=== PATIENT | female | born 1945 | race Caucasian/White ===

== ENCOUNTER 2017-10-11 04:31 | Inpatient (IN) | payer OTHER ==
[~2017-10-11] VITALS: Ht 167.6 cm; Wt 95.4 kg
[~2017-10-11 04:31] MED LIST: ADVIL PM CAPLE1 EACH PO; BUSPIRONE HCL30 M1 PO; CYTOMEL 25 MCG25 MCG PO; LEVOTHROID0.05 MG PO; LEXAPRO 20MG M20 MG PO; SYNTHROID0.025 MG PO
--- NOTE | 2017-10-11 04:33 | ED CARDIAC/CP/PALPITATIONS ---
History of Present Illness General Chief Complaint: Chest Pain Stated Complaint: hx a-fib diff breathing chest heavy Source: patient Exam Limitations: no limitations Vital Signs & Intake/Output Vital Signs & Intake/Output Vital Signs Date Time Temp Pulse Resp B/P B/P Pulse O2 O2 Flow FiO2 Mean Ox Delivery Rate 10/11 0536 122 18 136/78 95 Room Air 10/11 0500 97.6 113 24 132/99 10/11 0457 98 Room Air 10/11 0437 97.6 113 24 132/99 98 Room Air Allergies Coded Allergies: MDX - Codeine (CODEINE) (Severe, THROAT CLOSING, TONGUE SWELLS 01/11/15) rofecoxib (From VIOXX) (HYPERTENSION 10/11/17) Reconcile Medications Alendronate Sodium 70 MG TABLET 1 TAB PO QW BONE STRENGTH (Reported) in the morning, at least 30 minutes before the first food, beverage, or medication of the day Buspirone HCl 30 MG TABLET 1 TAB PO DAILY MENTAL HEALTH (Reported) Diltiazem HCl (Cartia Xt) 120 MG CAP.ER.24H 1 CAP PO DAILY HEART HEALTH ( Reported) Escitalopram Oxalate (Lexapro 20MG) (Unknown Strength) TAB 20 MG PO QAM MENTAL HEALTH (Reported) TAKE TWO TABLETS IN AM Ibuprofen/Diphenhydramine Cit (Advil Pm Caplet) 200 MG-38 MG TABLET 2 TAB PO QHS SLEEP HELP (Reported) Levothyroxine Sodium 50 MCG TABLET 1 TAB PO DAILY THYROID HEALTH (Reported) Levothyroxine Sodium (Levothroid) 0.05 MG TAB 0.05 MG PO DAILY AC THYROID Liothyronine (Cytomel 25 Mcg) 25 MCG TAB 25 MCG PO DAILY THYROID (Reported) TAKE ONE TABLET BY MOUTH DAILY Losartan Potassium 50 MG TABLET 1 TAB PO PM HEART HEALTH (Reported) Metoprolol Tartrate 50 MG TABLET 3 TAB PO BID HEART HEALTH (Reported) Triage Nurses Notes Reviewed? yes Onset: Gradual Duration: day(s): Timing: recent history Location: central Radiation: no radiation Activities at Onset: none Associated Symptoms: shortness of breath, CHEST PALPITATIONS HPI: 72 yo woman h/o afib, on eliquis, presents with shortness of breath and a rapid heart beat. 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 "We keep going up on my lopressor.... it's at 150mg twice a day... but the rate is still in the 130's... tonight it went as high as the 150's." She notes dyspnea and orthopnea at rest, as well as increased swelling in her lower extremities. No chest pain or radiation. Past History Travel History Traveled to [place] past 21 day No Medical History Any Pertinent Medical History? 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 No Review of Systems Review of Systems Constitutional: Denies: see HPI. Physical Exam Physical Exam Cardiovascular: tachycardia, irregularly irregular Comments: Review of Systems - except as otherwise noted in HPI Review of Systems Constitutional:no symptoms. EENTM:no symptoms. Respiratory:no symptoms. Cardiovascular:no symptoms. GI:no symptoms. Genitourinary:no symptoms. Musculoskeletal:no symptoms. Skin:no symptoms. Neurological/Psychological:no symptoms. Hematologic/Endocrine:no symptoms. Immunologic/Allergic:no symptoms. All Other Systems: Reviewed and Negative Physical Exam Physical Exam General Appearance: well developed/nourished, no apparent distress Head: atraumatic, normal appearance Eyes: Bilateral: normal appearance. Ears, Nose, Throat: normal pharynx, normal ENT inspection Neck: normal inspection, supple, full range of motion Respiratory: normal breath sounds, chest non-tender, no respiratory distress, quiet respiration, lungs clear Cardiovascular: see above... no murmurs, Gastrointestinal: normal bowel sounds, soft, non-tender, no organomegaly Back: normal inspection, normal range of motion Extremities: normal inspection, normal capillary refill, normal range of motion, 3-4+ symmetric edema Neurologic/Psych: no motor/sensory deficits, awake, alert, oriented x 3 Skin: intact, normal color, warm/dry Core Measures ACS in differential dx? No CVA/TIA Diagnosis No Sepsis Present: No Sepsis Focused Exam Completed? No Progress Differential Diagnosis: afib with rvr, chf, vs other Plan of Care: Orders Procedure Date/time Status CBC WITHOUT DIFFERENTIAL 10/12 06 Active BASIC ELECTROLYTES PLUS BUN&CR 10/12 06 Active CHF Diet 10/11 B Active Pathway - chart 10/11 0615 Active Pathway - chart 10/11 0614 Active ECHOCARDIOGRAM 10/11 0614 Active Patient Data 10/11 0540 Active Saline Lock 10/11 05 Active Misc Message 10/11 05 Active ED Holding Orders 10/12 527 Active Admit to inpatient 10/11 05 Active Vital Signs 10/11 05 Active Code Status 10/12 527 Active THYROID STIMULATING HORMONE 10/11 044 Complete B-TYPE NATRIURETIC PEP (BNP) 10/11 0446 Complete PARTIAL THROMBOPLASTIN TIME 10/11 0434 Complete PROTHROMBIN TIME 10/11 0434 Complete TROPONIN LEVEL 10/11 0433 Complete LIPASE 10/11 0433 Complete HEPATIC FUNCTION PANEL 10/11 0433 Complete CBC WITHOUT DIFFERENTIAL 10/11 0433 Complete BASIC METABOLIC PANEL 10/11 0433 Complete AMYLASE 10/11 0433 Complete EKG 10/11 0433 Active TRC EVALUATION (GEN) 10/11 UNK Active House Staff 10/11 UNK Active Weight 10/11 UNK Active VTE Mechanical Prophylaxis 10/11 UNK Active Vital Signs 10/11 UNK Active Intake & Output 10/11 UNK Active Activity/Ambulation 10/11 UNK Active Current Medications Sig/Mekhi Start time Last Medication Dose Stop Time Status Admin Diltiazem HCl 125 MG Q24H 10/11 0545 UNVr 10/11 (Cardizem DRIP) 0530 Sodium Chloride 100 ML (Normal Saline 0.9%) Diltiazem HCl 125 MG Q24H 10/11 0515 CAN (Cardizem DRIP) Dextrose/Water 100 ML (Dextrose 5%) Diltiazem HCl 125 MG ONCE ONE 10/11 0445 CAN (Cardizem DRIP) 10/11 1714 Sodium Chloride 100 ML (Normal Saline 0.9%) Laboratory Tests 10/11/17 0446: Anion Gap 15, Estimated GFR 55 L, BUN/Creatinine Ratio 27.0 H, Glucose 162 H, Calcium 9.0, Total Bilirubin 1.4 H, Direct Bilirubin 0.3, AST 70 H, ALT 72 H, Alkaline Phosphatase 80, Troponin I < 0.01, Bqu-D-Lfoehmgptkt Pept 86198 H, Total Protein 6.8, Albumin 3.8, Amylase 40, Lipase 117, TSH 9.070 H, PT 27.4 H , INR 2.49 H, APTT 36, CBC w Diff NO MAN DIFF REQ, RBC 4.92, MCV 82.2, MCH 26.4 L, MCHC 32.1 L, RDW 14.1, MPV 10.4, Gran % 68.7, Lymphocytes % 18.9 L, Monocytes % 10.0 H, Eosinophils % 1.8, Basophils % 0.6, Absolute Granulocytes 7.0 H, Absolute Lymphocytes 1.9, Absolute Monocytes 1.0 H, Absolute Eosinophils 0.2, Absolute Basophils 0.1 10/11/17 0436: Fsg-S-Wmqglwplvui Pept Cancelled, TSH Cancelled Diagnostic Imaging: Viewed by Me: Radiology Read. Discussed w/RAD: Radiology Read. CXR Impression: PATIENT: ROLDAN SALGADO PRESENT AGE : 72 PATIENT ACCOUNT NO: [id number] : 47 LOCATION: [facility] ORDERING PHYSICIAN: Nicolas Dey MD SERVICE DATE: 10/11/17 EXAM TYPE: RAD - XRY-PORTABLE CHEST XRAY EXAMINATION: XR PORTABLE CHEST CLINICAL INFORMATION: Chest pain COMPARISON: 01/11/2015 TECHNIQUE: Portable frontal view of the chest was obtained. FINDINGS: Cardiac leads overlie the chest. The lungs are well expanded. There is no focal consolidation, edema, or effusion. Increased bronchial wall thickening noted. No pneumothorax. The cardiomediastinal silhouette is within normal limits. No acute osseous abnormality. IMPRESSION: No dense consolidation. Bronchial wall thickening can be seen with a small airways process such as asthma or atypical/viral infection. DICTATED BY: Osmar Hoang MD DATE/TIME DICTATED:10/11/17512 TOOL AND DIE MACHINIST:JOANA DATE/TIME TRANSCRIBED:10/11/17512 CONFIDENTIAL, DO NOT COPY WITHOUT APPROPRIATE AUTHORIZATION. <Electronically signed in Other Vendor System> SIGNED BY: Osmar Hoang MD 10/11/17517 Initial ED EKG: afib, tachycardic Departure Departure Disposition: STILL A PATIENT Condition: Stable Clinical Impression Primary Impression: Atrial fibrillation with rapid ventricular response Referrals: Brittni Cabrera MD (PCP/Family) Departure Forms: Customer Survey General Discharge Information Admission Note Spoke With: Cristela Abdullahi MD Documentation of Exam: Documentation of any treatments & extenuating circumstances including Concerns Regarding Discharge (functional status, medication knowledge or non-compliance, living conditions, etc.) that warrant an admission rather than observation: pt with afib with rapid ventricular response... requiring dilt gtt... also with likely mild volume overload... discussed with dr. portillo who will evaluate patient this AM. pt merits dilt gtt, diuresis. Critical Care Note Critical Care Note Critical Care Time: 30-74 min
[2017-10-11 04:54] LABS: ABSOLUTE BASOPHIL COUNT 0.1 /CUMM (0.0-0.2); ABSOLUTE EOSINOPHIL COUNT 0.2 /CUMM (0.0-0.7); ABSOLUTE LYMPH COUNT 1.9 /CUMM (1.2-3.4); BASOPHIL % 0.6 % (0.0-2.0); EOSINOPHIL % 1.8 % (0-5); GRANULOCYTE % 68.7 % (42.2-75.2); HEMATOCRIT 40.4 % (37-47); MEAN CORPUSCULAR HGB 26.4 PG (27.0-31.0); MEAN CORPUSCULAR HGB CONC 32.1 G/DL (33.0-37.0); MEAN CORPUSCULAR VOLUME 82.2 FL (81.0-99.0); MEAN PLATELET VOLUME 10.4 FL (7.4-10.4); PLATELET COUNT 311 /CUMM (130-400); RBC DISTRIBUTION WIDTH 14.1 % (11.5-14.5); RED BLOOD CELL CT 4.92 /CUMM (4.20-5.40); WHITE BLOOD CELL COUNT 10.2 /CUMM (4.8-10.8)
[2017-10-11 05:01] LABS: PT 27.4 SEC (9.4-12.5); PTT 36 SEC (25-37)
--- NOTE | 2017-10-11 05:18 | RADIOLOGY REPORT ---
EXAMINATION: XR PORTABLE CHEST CLINICAL INFORMATION: Chest pain COMPARISON: 01/11/2015 TECHNIQUE: Portable frontal view of the chest was obtained. FINDINGS: Cardiac leads overlie the chest. The lungs are well expanded. There is no focal consolidation, edema, or effusion. Increased bronchial wall thickening noted. No pneumothorax. The cardiomediastinal silhouette is within normal limits. No acute osseous abnormality. IMPRESSION: No dense consolidation. Bronchial wall thickening can be seen with a small airways process such as asthma or atypical/viral infection.
[2017-10-11] MEDS ORDERED: LEVOTHYROXINE50 MCG PO (05:58)
[2017-10-11] MEDS ORDERED: METOPROLOL TART50 M1 PO (06:01)
[2017-10-11] MEDS ORDERED: LOSARTAN POTASS50 M1 PO (06:02)
--- NOTE | 2017-10-11 06:02 | History & Physical ---
Dina Myles 10/11/17 0552: General Information and HPI MD Statement: I have seen and personally examined ROLDAN AYALA and documented this H&P. 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 some compliance issues of taking LT4, came to the hospital with a chief concern of of dyspnea. She was known to be in her usual state of health until 1 month ago. She was known to be in her usual state of health until 1 month ago. She started developing exertional dyspnea, and occasional nonproductive cough. She follows up with her allergy physician, Dr. Yu has been adjusting her dose of beta blockers+ calcium channel blockers, and increase the dose of furosemide. She has been progressively getting worse, and developed orthopnea 2 days ago. Reported increasing pedal edema. No changes in urine output. Reported indiscretion to salt intake, and medication noncompliance. Reported to be dealing with some social issues and multiple medical problems. No chest pain or lightheadedness. No recent illnesses, fever, dysuria. Nonsmoker, occasional alcohol use. 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 EENTM: Denies: double vision, visual changes. Cardiovascular: Denies: chest pain. Respiratory: Denies: cough. GI: Denies: diarrhea. Genitourinary: Denies: dysuria. Musculoskeletal: Denies: joint pain. Skin: Denies: change in skin color. Neurological/Psychological: Denies: anxiety. Hematologic/Endocrine: Denies: bruising. Exam & Diagnostic Data Last 24 Hrs of Vital Signs/I&O Vital Signs Date Time Temp Pulse Resp B/P B/P Pulse O2 O2 Flow FiO2 Mean Ox Delivery Rate 10/11 0536 122 18 136/78 95 Room Air 10/11 0500 97.6 113 24 132/99 10/11 0457 98 Room Air 10/11 0437 97.6 113 24 132/99 98 Room Air Intake & Output 10/11 0800 10/11 0000 10/10 1600 Intake Total 60 Output Total Balance 60 Intake, Oral 60 Patient 185 lb Weight Physical Exam General Appearance Alert, Oriented X3, Cooperative, No Acute Distress, Mild Distress Skin No Rashes, No Breakdown Skin Temp/Moisture Exam: Warm/Dry Sepsis Skin Exam (color): Normal for Ethnicity HEENT Atraumatic, PERRLA, EOMI, Mucous Membr. moist/pink Neck Supple, No JVD, No thryomegaly Lymphatic Axillary nl, Cervical nl Cardiovascular Normal S1, Normal S2, No Murmurs, irregularly irregular Lungs Clear to Auscultation, Normal Air Movement Abdomen Normal Bowel Sounds, Soft, No Tenderness, No Hepatospenomegaly Neurological Normal Speech, Strength at 5/5 X4 Ext, Normal Tone, Sensation Intact, Cranial Nerves 3-12 NL, Reflexes 2+ Extremities No Cyanosis, Normal Pulses, pedal edema 1+ Vascular Normal Pulses, Pulses Symmetrical Last 24 Hrs of Labs/Wilman: Laboratory Tests 10/11/17 0446: Anion Gap 15, Estimated GFR 55 L, BUN/Creatinine Ratio 27.0 H, Glucose 162 H, Calcium 9.0, Total Bilirubin 1.4 H, Direct Bilirubin 0.3, AST 70 H, ALT 72 H, Alkaline Phosphatase 80, Troponin I < 0.01, Crh-T-Ewucwroybrl Pept 16181 H, Total Protein 6.8, Albumin 3.8, Amylase 40, Lipase 117, TSH 9.070 H, PT 27.4 H , INR 2.49 H, APTT 36, CBC w Diff NO MAN DIFF REQ, RBC 4.92, MCV 82.2, MCH 26.4 L, MCHC 32.1 L, RDW 14.1, MPV 10.4, Gran % 68.7, Lymphocytes % 18.9 L, Monocytes % 10.0 H, Eosinophils % 1.8, Basophils % 0.6, Absolute Granulocytes 7.0 H, Absolute Lymphocytes 1.9, Absolute Monocytes 1.0 H, Absolute Eosinophils 0.2, Absolute Basophils 0.1 10/11/17 0436: Nxn-D-Otlkrohhnqq Pept Cancelled, TSH Cancelled Diagnostic Data EKG Results atrial fibrillation, ST-T wave changes. 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 some compliance issues of taking LT4 came to the hospital with a chief concern of acute onset of dyspnea likely secondary to worsenig CHF leading to Rapid Afib. At the time of admission- temperatures 97.6, pulse rate 103, respiration 24, blood pressure 132/99, 98% on room air. Pertinent lab findings- WBC 10.2, hemoglobin 13.0, MCH 26.4, platelet count 311. Sodium 144, potassium 5.5 (slightly elevated likely), chloride 109, bicarbonate 18 (acedemic) Anion gap 15, BUN 27, creatinine 1.0. Glucose 162. Total bilirubin 1.4, AST 70, ALT 72 ProBNP 49864 TSH 9.070 Last echocardiogram: 13 January 2015 Mild left ventricular dilatation. Normal left ventricular ejection fraction visually estimated at > 55%. Mild left atrial dilatation. Mild mitral regurgitation. Mild aortic regurgitation. Mild tricuspid regurgitation. Trace pulmonic regurgitation. Etiology in this case is likely acute decompensated heart failure w/ a possible precipitating event, increase salt intake+medication noncompliance, arrythmia on chronic systolic/diastolic left-sided heart failure. In regards to her atrial fibrillation, she should be continued on anticoagulation and Cardizem drip. She was given metoprolol and Cardizem by mouth, which is quite unusual, which makes his belief that heart rate is being difficult to be controlled. Problem list: 1. Afib w/ RVR 2. CHF ( possibly HFrEF ) 3. 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 h/o depression 5. h/o hypothyroidism -admit the patient on telemetry -follow serial EKGs, troponins -daily Ins and Outs -daily weights -IV diuretics furosemide 40 mg twice a day. -Check BEP daily while on diuretics. -Check FT4, total T3 given high TSH. -2D cardiac echo after discussing w/ cards. She got one recently. -supplemental oxygen as needed -Hold Losartan given hyperkalemia. Although, should be started in CHF. -CHF diet, 2gm salt restriction -Checkerer Hand on dietary compliance -Continue Cardizem, Eliquis. -She has not been taking ospemifene, which needs to be restarted at the time of dc Full code. As Ranked By This Provider Problem List: 1. Atrial fibrillation with rapid ventricular response 2. Anxiety 3. Depression 4. Hypothyroid Core Measures/Misc (12/18) Acute Coronary Syndrome ACS Diagnosis: No Congestive Heart Failure Congestive Heart Failure Diagnosis Yes Last Known EF % 55 No RAND/ARB d/t Medical Contraindication (hyperkalemia) Comment 2014 Cerebrovascular Accident CVA/TIA Diagnosis: No VTE (View Protocol) VTE Risk Factors No risk factors No Mechanical VTE Prophylaxis d/t N/A MechProphylax Ordered No VTE Pharm Prophylaxis d/t NA PharmProphylax ordered Sepsis (View protocol) Sepsis Present: No If YES complete Sepsis Event Note If YES complete Sepsis Event Note Elliot Sim 10/11/17 1119: General Information and HPI Allergies/Medications Home Med list Alendronate Sodium 70 MG TABLET 1 TAB PO QW BONE STRENGTH (Reported) in the morning, at least 30 minutes before the first food, beverage, or medication of the day Apixaban (Eliquis) 5 MG TABLET 1 TAB PO BID BLOOD THINNER (Reported) Buspirone HCl 30 MG TABLET 1 TAB PO DAILY MENTAL HEALTH (Reported) Digoxin 250 MCG TABLET 1 TAB PO DAILY atrial fibrillation . Diltiazem HCl (Cartia Xt) 120 MG CAP.ER.24H 1 CAP PO DAILY HEART HEALTH ( Reported) Furosemide 40 MG TABLET 1 TAB PO BID chf Ibuprofen/Diphenhydramine Cit (Advil Pm Caplet) 200 MG-38 MG TABLET 2 TAB PO QHS SLEEP HELP (Reported) Levothyroxine Sodium 50 MCG TABLET 1 TAB PO DAILY THYROID HEALTH (Reported) Liothyronine Sodium (Cytomel) 25 MCG TABLET 1 TAB PO DAILY HYPOTHYROIDISM ( Reported) Losartan Potassium 50 MG TABLET 1 TAB PO PM HEART HEALTH (Reported) Metoprolol Tartrate 50 MG TABLET 3 TAB PO BID HEART HEALTH (Reported) Ospemifene (Osphena) 60 MG TABLET 1 TAB PO DAILY DIRECTED (Reported) Core Measures/Misc (12/18) Sepsis (View protocol) If YES complete Sepsis Event Note If YES complete Sepsis Event Note Attending MD Review Statement Attending Statement Attending MD Statement: examined this patient, discuss w/resident/PA/CAR TRIMMER, agreed w/resident/PA/CAR TRIMMER, reviewed EMR data (avail), discussed with nursing, discussed with case mgmt Attending Assessment/Plan: 72yr old f with a pmh of paroxysmal atrial fibrillation on apixaban, breast carcinoma s/p mastectomy(dx'ed 2017 on SERM), anxiety, depression, hypothyroidism presented to the hospital with a chief concern of of dyspnea. Pt being admitted for afib iwth RvR and some leg edema and found in ER to have high TSH Afib with RVR- admit to tele and monitor closely the HR. will get cardiology consult with Dr Yu team to evaluate for change of her meds. currently on cardizem drip and eliquis. CHF acute on chronic- will cont on iv lasix for now. will monitor her I & O. will get her echo reprot from Dr Yu office. Hypothyroidism- will f/u with her PCP about med change recently and compliance issue.
[2017-10-11] MEDS ORDERED: ALENDRONATE SOD70 M2 PO (06:12)
[2017-10-11] MEDS ORDERED: CARTIA XT120 M1 PO (06:13)
[2017-10-11] MEDS ORDERED: ELIQUIS5 M1 PO (06:16)
[2017-10-11] MEDS ORDERED: FUROSEMIDE40 M1 PO (06:18)
[2017-10-11] MEDS ORDERED: OSPHENA60 M1 PO (06:18)
[2017-10-11] MEDS ORDERED: CYTOMEL25 MC1 PO (06:28)
--- NOTE | 2017-10-11 07:16 | PN- Housestaff ---
Subjective Follow-up For: Atrial fibrillation with rapid ventricular rate Congestive heart failure with preserved ejection fraction Abnormal thyroid function tests Hyperkalemia Transaminitis Metabolic acidosis Complaints: no complaints Tele-Events Since Last Visit: Atrial fibrillation, rate varying between 80-110 Subjective: Patient was seen and examined this morning. She is alert awake and oriented to time place and person. No acute events noticed. Patient continues to report shortness of breath with minimal exertion. She denies any chest pain, palpitations. She continues to report dry cough, orthopnea and paroxysmal nocturnal dyspnea. Denies any fever, chills. Review of Systems Constitutional: Reports: see HPI. Objective Last 24 Hrs of Vital Signs/I&O Vital Signs Date Time Temp Pulse Resp B/P B/P Pulse O2 O2 Flow FiO2 Mean Ox Delivery Rate 10/11 1054 Room Air 10/11 0912 97.9 116 20 102/60 95 10/11 0748 98.3 105 18 118/72 95 10/11 0638 100 Room Air 10/11 0536 122 18 136/78 95 Room Air 10/11 0500 97.6 113 24 132/99 10/11 0457 98 Room Air 10/11 0437 97.6 113 24 132/99 98 Room Air Intake & Output 10/11 1600 10/11 0800 10/11 0000 Intake Total 60 Output Total 700 Balance -640 Intake, Oral 60 Output, Urine 700 Patient 83.915 kg Weight Weight Reported by Patient Measurement Method Physical Exam General Appearance: Alert, Oriented X3, Cooperative, No Acute Distress Other Physical Findings: Skin No Rashes, No Breakdown HEENT Atraumatic, PERRLA, EOMI, Mucous Membr. moist/pink Neck Supple, No JVD, No thryomegaly Lymphatic Axillary nl, Cervical nl Cardiovascular Normal S1, Normal S2, No Murmurs, irregularly irregular Lungs crackles, wheezes, bilateral normal Air Movement Abdomen Normal Bowel Sounds, Soft, No Tenderness, No Hepatospenomegaly Neurological Normal Speech, Strength at 5/5 X4 Ext, Normal Tone, Sensation Intact, Cranial Nerves 3-12 NL, Reflexes 2+ Extremities No Cyanosis, Normal Pulses, pedal edema 1+ Vascular Normal Pulses, Pulses Symmetrical Current Medications: Current Medications Sig/Mekhi Start time Last Medication Dose Route Stop Time Status Admin Albuterol Sulfate 2 PUF Q4P PRN 10/11 1100 AC INH Apixaban 5 MG BID 10/11 899 AC 10/11 PO 1315 Benzocaine/Menthol 1 GUILLERMO Q2P PRN 10/11 0915 AC 10/11 PO 1045 Buspirone HCl 30 MG DAILY 10/11 899 AC 10/11 PO 1209 Diltiazem HCl 125 MG Q24H 10/11 0545 AC 10/11 Sodium Chloride 100 ML IV 0530 Diltiazem HCl 125 MG Q24H 10/11 0515 CAN Dextrose/Water 100 ML IV Diltiazem HCl 125 MG ONCE ONE 10/11 0445 CAN Sodium Chloride 100 ML IV 10/11 1714 Diltiazem HCl 120 MG ONCE ONE 10/11 0445 DC 10/11 PO 10/11 0446 0536 Furosemide 40 MG 7:30 AM, & 4:30 PM 10/11 1630 AC IV Furosemide 40 MG ONCE ONE 10/11 0500 DC 10/11 IV 10/11 0501 0500 Furosemide 0 .STK-MED ONE 10/11 045 DC IV Levothyroxine Sodium 0.05 MG DAILY AC 10/11 699 AC 10/11 PO 0720 Lorazepam 1 MG ONE ONE 10/11 1300 DC 10/11 PO 10/11 1301 1318 Losartan Potassium 50 MG DAILY 10/11 899 CAN PO Metoprolol Tartrate 0 .STK-MED ONE 10/11 045 DC PO Metoprolol Tartrate 150 MG ONCE ONE 10/11 0445 DC 10/11 PO 10/11 0446 0500 Last 24 Hrs of Lab/Wilman Results Last 24 Hrs of Labs/Mics: Laboratory Tests 10/11/17 1248: Troponin I Pending 10/11/17 1248: Potassium Pending 10/11/17 0446: Anion Gap 15, Estimated GFR 55 L, BUN/Creatinine Ratio 27.0 H, Glucose 162 H, Hemoglobin A1c 6.5 H, Calcium 9.0, Total Bilirubin 1.4 H, Direct Bilirubin 0.3 , AST 70 H, ALT 72 H, Alkaline Phosphatase 80, Troponin I < 0.01, Pro-B- Natriuretic Pept 47837 H, Total Protein 6.8, Albumin 3.8, Triglycerides 80, Cholesterol 123, LDL Cholesterol, Calc 75, HDL Cholesterol 32 L, Cholesterol/ HDL Ratio 4, Amylase 40, Lipase 117, TSH 9.070 H, Free T4 1.24, Total T3 Pending, PT 27.4 H, INR 2.49 H, APTT 36, CBC w Diff NO MAN DIFF REQ, RBC 4.92, MCV 82.2, MCH 26.4 L, MCHC 32.1 L, RDW 14.1, MPV 10.4, Gran % 68.7, Lymphocytes % 18.9 L, Monocytes % 10.0 H, Eosinophils % 1.8, Basophils % 0.6, Absolute Granulocytes 7.0 H, Absolute Lymphocytes 1.9, Absolute Monocytes 1.0 H, Absolute Eosinophils 0.2, Absolute Basophils 0.1 10/11/17 0436: [id number] Pept Cancelled, TSH Cancelled Assessment/Plan Assessment: Ms Ayala is a 72-year-old woman with a past history of paroxysmal atrial fibrillation on apixaban, 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 At the time of admission- temperatures 97.6, pulse rate 103, respiration 24, blood pressure 132/99, 98% on room air. Pertinent lab findings- WBC 10.2, hemoglobin 13.0, MCH 26.4, platelet count 311. Sodium 144, potassium 5.5 (slightly elevated likely), chloride 109, bicarbonate 18 (acedemic) Anion gap 15, BUN 27, creatinine 1.0. Glucose 162. Total bilirubin 1.4, AST 70, ALT 72 ProBNP 14602 TSH 9.070 Last echocardiogram: 13 January 2015 Mild left ventricular dilatation. Normal left ventricular ejection fraction visually estimated at > 55%. Mild left atrial dilatation. Mild mitral regurgitation. Mild aortic regurgitation. Mild tricuspid regurgitation. Trace pulmonic regurgitation. A. fib with rapid ventricular rate Patient presented with acute dyspnea with minimal exertion associated with palpitations and shortness of breath. EKG showed atrial fibrillation, irregularly irregular rhythm with rapid ventricular rate up to 130. Troponin was negative. She denied any chest pain. * Admitted to telemetry for A. fib management * Continuous security monitor * Serial troponin and EKG * Started Cardizem drip at 5 mL/h, goal heart rate 90-100 * Continue home dose apixaban 5 mg twice daily * Will hold her home medications extended release Cardizem and metoprolol tartrate * Echocardiogram * Follow-up cardiology recommendations Worsening dyspnea Patient presented with worsening dyspnea at rest of unclear etiology. Etiology in this case is likely acute decompensated heart failure with elevated proBNP. However her chest x-ray does not show any signs of overt heart failure. Given her lung exam there might be a possibility of underlying pulmonary disease. * Total respiratory care * Provide supplemental oxygen to maintain saturation above 92 * She takes Lasix 40 mg daily at home. * Will start her on IV Lasix 40 twice daily * Monitor ins and outs * Monitor daily weights * Follow-up echocardiogram * Will get CT chest without IV contrast to look for any underlying lung pathology * At some point patient will need baseline mental function tests. History of hypothyroidism Patient has history of hypothyroid, takes levothyroxine 50 mcg and liothyronine 25 mcg daily. She was found to have elevated TSH 9 at the time of admission * free T4 within normal limits. Will get T3 level * Will get records from her PCP office regarding her medication * Meanwhile will continue levothyroxine 50 mcg daily Hyperkalemia Potassium 5.5 at the time of admission. No EKG changes suggestive of hyperkalemia, she is asymptomatic. * Will repeat labs in the a.m. Abnormal liver function tests She was found to have bilirubin 1.4, ALT 17 AST 72. Will follow up LFTs in the a.m. and will plan for ultrasound if LFTs are abnormal Metabolic acidosis She has bicarb 18 at the time of admission. Anion gap was 15. Hyperchloremia 111. Will follow-up metabolic profile in the a.m. History of hypertension She takes Cozaar at home however will hold the medication for now given hyperkalemia Depression Continue home medication buspirone 30 daily pagets disease She has not been taking ospemifene, which needs to be restarted at the time of dc Full code. DVT prophylaxis- eliqus reg diet pain pathway ordered Problem List: 1. Atrial fibrillation with rapid ventricular response Pain Ratin Pain Location: N/A Pain Goal: Remain pain free Pain Plan: TYLENOL Tomorrow's Labs & Rationales: CBC BEP LFT
[2017-10-11 09:12] VITALS: BP 102/60
--- NOTE | 2017-10-11 12:16 | Cons- Cardiology ---
General Information and HPI Consulting Request Date of Consult: 10/11/17 Requested By: Elliot Sim MD Reason for Consult: Worsening shortness of breath Source of Information: patient, old records Exam Limitations: no limitations History of Present Illness: The patient is a 72-year-old female who is followed by Dr. Yu as her primary security assistant. Her past medical history is remarkable for atrial fibrillation, on oral anticoagulation, hypothyroidism, breast cancer, anxiety and depression. The patient was recently seen in the office and reports having had a recent echocardiogram performed. Recently, her medications have been adjusted with increasing doses of beta blockers and increased diuretic dose. Despite this fact, the patient notes that she has become progressively worse. More recently, she has noted increasing orthopnea She has also noted some worsening of her pedal edema. She also notes that she has been concerned because she was recently told that a recent echo showed leaky heart valves. At the moment, the patient is mildly dyspneic on supplemental oxygen. No other cardiac symptoms noted. Allergies/Medications Allergies: Coded Allergies: codeine (Severe, THROAT CLOSING, TONGUE SWELLS 10/11/17) rofecoxib (From VIOXX) (HYPERTENSION 10/11/17) Home Med List: Alendronate Sodium 70 MG TABLET 1 TAB PO QW BONE STRENGTH (Reported) in the morning, at least 30 minutes before the first food, beverage, or medication of the day Apixaban (Eliquis) 5 MG TABLET 1 TAB PO BID BLOOD THINNER (Reported) Buspirone HCl 30 MG TABLET 1 TAB PO DAILY MENTAL HEALTH (Reported) Diltiazem HCl (Cartia Xt) 120 MG CAP.ER.24H 1 CAP PO DAILY HEART HEALTH ( Reported) Furosemide 40 MG TABLET 1 TAB PO DAILY HEART HEALTH (Reported) Ibuprofen/Diphenhydramine Cit (Advil Pm Caplet) 200 MG-38 MG TABLET 2 TAB PO QHS SLEEP HELP (Reported) Levothyroxine Sodium 50 MCG TABLET 1 TAB PO DAILY THYROID HEALTH (Reported) Liothyronine Sodium (Cytomel) 25 MCG TABLET 1 TAB PO DAILY HYPOTHYROIDISM ( Reported) Losartan Potassium 50 MG TABLET 1 TAB PO PM HEART HEALTH (Reported) Metoprolol Tartrate 50 MG TABLET 3 TAB PO BID HEART HEALTH (Reported) Ospemifene (Osphena) 60 MG TABLET 1 TAB PO DAILY DIRECTED (Reported) Current Medications: Current Medications Sig/Mekhi Start time Last Medication Dose Route Stop Time Status Admin Albuterol Sulfate 2 PUF Q4P PRN 10/11 1100 AC INH Apixaban 5 MG BID 10/11 899 AC PO Benzocaine/Menthol 1 GUILLERMO Q2P PRN 10/11 0915 AC 10/11 PO 1045 Buspirone HCl 30 MG DAILY 10/11 09 AC 10/11 PO 1209 Diltiazem HCl 125 MG Q24H 10/11 0545 AC 10/11 Sodium Chloride 100 ML IV 0530 Diltiazem HCl 125 MG Q24H 10/11 0515 CAN Dextrose/Water 100 ML IV Diltiazem HCl 125 MG ONCE ONE 10/11 0445 CAN Sodium Chloride 100 ML IV 10/11 1714 Diltiazem HCl 120 MG ONCE ONE 10/11 0445 DC 10/11 PO 10/11 0446 0536 Furosemide 40 MG 7:30 AM, & 4:30 PM 10/11 1630 AC IV Furosemide 40 MG ONCE ONE 10/11 0500 DC 10/11 IV 10/11 0501 0500 Furosemide 0 .STK-MED ONE 10/11 0452 DC IV Levothyroxine Sodium 0.05 MG DAILY AC 10/11 699 AC 10/11 PO 0720 Losartan Potassium 50 MG DAILY 10/11 899 CAN PO Metoprolol Tartrate 0 .STK-MED ONE 10/11 0452 DC PO Metoprolol Tartrate 150 MG ONCE ONE 10/11 0445 DC 10/11 PO 10/11 0446 0500 Past History Travel History Traveled to [place] past 21 day No Medical History Neurological: NONE EENT: NONE Cardiovascular: AFIB, hypertension Respiratory: NONE Gastrointestinal: NONE Hepatic: NONE Renal: NONE Musculoskeletal: NONE Psychiatric: anxiety, depression Endocrine: hypothyroidism Blood Disorders: NONE Cancer(s): NONE 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 Home Services at Home: None Smoking Status: Never Smoked ETOH Use: denies use Illicit Drug Use: denies illicit drug use Exam & Diagnostic Data Vital Signs and I&O Vital Signs Date Time Temp Pulse Resp B/P B/P Pulse O2 O2 Flow FiO2 Mean Ox Delivery Rate 10/11 1054 Room Air 10/12 911 97.9 116 20 102/60 95 10/11 0748 98.3 105 18 118/72 95 10/11 0638 100 Room Air 10/11 0536 122 18 136/78 95 Room Air 10/11 0500 97.6 113 24 132/99 10/11 0457 98 Room Air 10/11 0437 97.6 113 24 132/99 98 Room Air Intake & Output 10/11 1600 10/11 0800 10/11 0000 / 1600 10/10 0800 10/10 0000 Intake Total 60 Output Total 700 Balance -640 Intake, Oral 60 Output, Urine 700 Patient 185 lb Weight Weight Reported by Patient Measurement Method Physical Exam: General Appearance: well developed/nourished, overweight white female, alert, awake, oriented Head: normal HEENT: Normal Neck: supple, JVP normal, carotid upstrokes normal bilaterally, no masses or thyromegaly Respiratory: chest non-tender, diffuse bilateral rhonchi and wheezing with scant crackles at the bases Cardiovascular: regular rate/rhythm, normal S1, S2, 1/6 systolic murmur Abdomen: normal bowel sounds, soft, non-tender Extremities: normal inspection, mild lower extremity edema Vascular: Pulses are 2+ and equal bilaterally Neurologic: Grossly normal/nonfocal Labs/[place] Results: Laboratory Tests 10/11 10/11 0446 0436 Chemistry Sodium (137 - 145 mmol/L) 144 Potassium (3.5 - 5.1 mmol/L) 5.5 H Chloride (98 - 107 mmol/L) 111 H Carbon Dioxide (22 - 30 mmol/L) 18 L Anion Gap (5 - 16) 15 BUN (7 - 17 mg/dL) 27 H Creatinine (0.5 - 1.0 mg/dL) 1.0 Estimated GFR (>60 ml/min) 55 L BUN/Creatinine Ratio (7 - 25 %) 27.0 H Glucose (65 - 99 mg/dL) 162 H Hemoglobin A1c (4.2 - 5.8 %) 6.5 H Calcium (8.4 - 10.2 mg/dL) 9.0 Total Bilirubin (0.2 - 1.3 mg/dL) 1.4 H Direct Bilirubin (< 0.4 mg/dL) 0.3 AST (14 - 36 U/L) 70 H ALT (9 - 52 U/L) 72 H Alkaline Phosphatase (<127 U/L) 80 Troponin I (< 0.11 ng/ml) < 0.01 [id number] Pept (<125 pg/mL) 32944 H Cancelled Total Protein (6.3 - 8.2 g/dL) 6.8 Albumin (3.5 - 5.0 g/dL) 3.8 Triglycerides (<150 mg/dL) 80 Cholesterol (<200 MG/DL) 123 LDL Cholesterol, Calc (65 - 129 mg/dL) 75 HDL Cholesterol (40 - 60 mg/dL) 32 L Cholesterol/HDL Ratio (0.00 - 4.23 %) 4 Amylase (30 - 110 U/L) 40 Lipase (23 - 300 U/L) 117 TSH (0.270 - 4.200 uIU/mL) 9.070 H Cancelled Free T4 (0.78 - 2.44 ng/dL) 1.24 Total T3 (0.97 - 1.69 ng/mL) Pending Coagulation PT (9.4 - 12.5 SEC) 27.4 H INR (0.90 - 1.19) 2.49 H APTT (25 - 37 SEC) 36 Hematology CBC w Diff NO MAN DIFF REQ WBC (4.8 - 10.8 /CUMM) 10.2 RBC (4.20 - 5.40 /CUMM) 4.92 Hgb (12.0 - 16.0 G/DL) 13.0 Hct (37 - 47 %) 40.4 MCV (81.0 - 99.0 FL) 82.2 MCH (27.0 - 31.0 PG) 26.4 L MCHC (33.0 - 37.0 G/DL) 32.1 L RDW (11.5 - 14.5 %) 14.1 Plt Count (130 - 400 /CUMM) 311 MPV (7.4 - 10.4 FL) 10.4 Gran % (42.2 - 75.2 %) 68.7 Lymphocytes % (20.5 - 51.1 %) 18.9 L Monocytes % (1.7 - 9.3 %) 10.0 H Eosinophils % (0 - 5 %) 1.8 Basophils % (0.0 - 2.0 %) 0.6 Absolute Granulocytes (1.4 - 6.5 /CUMM) 7.0 H Absolute Lymphocytes (1.2 - 3.4 /CUMM) 1.9 Absolute Monocytes (0.10 - 0.60 /CUMM) 1.0 H Absolute Eosinophils (0.0 - 0.7 /CUMM) 0.2 Absolute Basophils (0.0 - 0.2 /CUMM) 0.1 Diagnostic Data CXR Results FINDINGS: Cardiac leads overlie the chest. The lungs are well expanded. There is no focal consolidation, edema, or effusion. Increased bronchial wall thickening noted. No pneumothorax. The cardiomediastinal silhouette is within normal limits. No acute osseous abnormality. IMPRESSION: No dense consolidation. Bronchial wall thickening can be seen with a small airways process such as asthma or atypical/viral infection. Assessment/Plan Assessment/Plan Assessment: 1. Worsening dyspnea of unclear etiology-at the moment, the patient does have an elevated proBNP and possibly a history of HFpEF. Her examination suggest possible underlying pulmonary disease as well. Her chest x-ray shows no overt heart failure. 2. Atrial fibrillation with elevated ventricular rate 3. History of hypothyroidism with elevated TSH of 9 4. Abnormal liver function tests 5. Acute depression 6. Possible metabolic acidosis Recommendations: -Maintain on telemetry monitoring -Repeat echocardiogram to assess left ventricular function, right ventricular systolic pressure, etc. -Continue gentle diuresis with IV Lasix. Close monitoring of intakes, outputs, daily weights -Please check follow-up metabolic profile. If bicarb remains low, please check a baseline ABG -Consider baseline noncontrast chest CT to rule out interstitial lung process -At some point, the patient will need baseline PFTs as well -Check follow-up liver function tests. If consistently abnormal, consider abdominal ultrasound -Further plans after the above Consult Acknowledgment - Thank you for your consult request.
[2017-10-11 14:00] VITALS: BP 120/80
--- NOTE | 2017-10-11 15:13 | CT SCAN REPORT ---
EXAMINATION: CT CHEST WITHOUT CONTRAST CLINICAL INFORMATION: 72-year-old female with shortness of breath, cough and wheezing. Evaluate for pneumonia. COMPARISON: CXR from 01/11/2015 and 10/11/2017. TECHNIQUE: Multidetector volumetric CT imaging of the chest was done. Axial MIP volume rendering provided. Sagittal and coronal reformatted images were obtained. DLP: 302 mGy-cm FINDINGS: LUNGS AND PLEURA: Lungs have slightly mosaic attenuation. Mild thickening of interlobular septa within lower lobes (i.e., likely mild interstitial edema). Pulmonary arteries and veins are prominent. Small bilateral pleural effusions (right larger than left) with mild compressive atelectasis of right lower lobe. Scattered linear opacities of atelectasis in both lungs. No focal consolidation. Small, 0.2 cm noncalcified nodule in the lateral aspect of the right upper lobe (image 106, series 4). 0.3 cm noncalcified pleural-based nodule of the right middle lobe (image 306, series 4). Also, 0.3 cm noncalcified nodule of the left lower lobe (image 355, series 4). MEDIASTINUM: Multichamber cardiac enlargement. Minimal atherosclerotic calcification of the left anterior descending coronary artery. No pericardial effusion. Pulmonary artery trunk is mildly dilated (3.2 cm diameter). The central right and left pulmonary arteries are dilated, as well. Mild atherosclerosis of the thoracic aorta without aneurysm. The esophagus has normal wall thickness. Thyroid gland is atrophied. No mediastinal mass. LYMPHATICS: No pathologic sized axillary, hilar or mediastinal lymph nodes. Multiple small lymph nodes of less than 1 cm short axis dimension are seen within the mediastinum. UPPER ABDOMEN: No acute findings. Gallbladder is surgically absent. Adrenal glands are normal. 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 SKELETAL AND CHEST WALL: There is hyperkyphosis and mild dextroscoliosis of the degenerated thoracic spine. No aggressive osseous lesions. IMPRESSION: 1. Cardiomegaly, pulmonary vascular congestion and likely mild interstitial edema in the lower lobes. Associated small pleural effusions (right larger than left). 2. The prominence of the pulmonary arteries suggest possibility of chronic pulmonary arterial hypertension. 3. There are a few small pulmonary and pleural-based nodules of < 0.4 cm size. Based on updated guidelines from the Fleischner Society, routine CT follow-up is not required in a low-risk patient and is considered optional at 12 months in a high risk patient.
[2017-10-11 22:06] VITALS: BP 110/60
[2017-10-12 07:27] VITALS: BP 110/60
--- NOTE | 2017-10-12 07:29 | PN- Housestaff ---
Ronny Sanford 10/12/17 0729: Subjective Follow-up For: Atrial fibrillation with rapid ventricular rate Congestive heart failure with preserved ejection fraction Abnormal thyroid function tests Hyperkalemia resolved Transaminitis Metabolic acidosis resolved Complaints: pain scale (0-10) Tele-Events Since Last Visit: Atrial fibrillation, 96-114 Subjective: Patient was seen and examined this morning. She is alert awake and oriented to time place and person. No acute events noticed. Patient reports improvement of shortness of breath. She denies any chest pain, palpitations. She continues to report dry cough No orthopnea and paroxysmal nocturnal dyspnea. Denies any fever, chills. Review of Systems Constitutional: Reports: see HPI. Objective Last 24 Hrs of Vital Signs/I&O Vital Signs Date Time Temp Pulse Resp B/P B/P Pulse O2 O2 Flow FiO2 Mean Ox Delivery Rate 10/12 0800 95 Nasal 1.0L Cannula 10/12 0727 97.7 121 20 110/60 93 10/12 0000 Nasal 1.0L Cannula 10/11 2206 98.3 112 20 110/60 96 10/11 1600 Nasal 1.0L Cannula 10/11 1400 97.6 113 20 120/80 93 Nasal 1.0L Cannula 10/11 1054 Room Air Intake & Output 10/12 1600 10/12 0800 10/12 0000 Intake Total 110 350 Output Total 550 1650 Balance -440 -1300 Intake, IV 50 Intake, Oral 110 300 Output, Urine 550 1650 Patient 100.442 kg Weight Physical Exam General Appearance: Alert, Oriented X3, Cooperative, No Acute Distress Other Physical Findings: HEENT Atraumatic, PERRLA, EOMI, Mucous Membr. moist/pink Neck Supple, No JVD, No thryomegaly Lymphatic Axillary nl, Cervical nl Cardiovascular Normal S1, Normal S2, No Murmurs, irregularly irregular Lungs crackles, wheezes, bilateral normal Air Movement Abdomen Normal Bowel Sounds, Soft, No Tenderness, No Hepatospenomegaly Neurological Normal Speech, Strength at 5/5 X4 Ext, Normal Tone, Sensation Intact, Cranial Nerves 3-12 NL, Reflexes 2+ Extremities No Cyanosis, Normal Pulses, pedal edema 1+ Vascular Normal Pulses, Pulses Symmetrical Current Medications: Current Medications Sig/Mekhi Start time Last Medication Dose Route Stop Time Status Admin Albuterol Sulfate 2 PUF Q4P PRN 10/11 1100 AC INH Apixaban 5 MG BID 10/11 0900 AC 10/11 PO 2148 Benzocaine/Menthol 1 GUILLERMO Q2P PRN 10/11 0915 AC 10/11 PO 1045 Buspirone HCl 30 MG DAILY 10/11 09 AC 10/11 PO 1209 Diltiazem HCl 125 MG Q24H 10/11 0545 AC 10/12 Sodium Chloride 100 ML IV 0331 Furosemide 40 MG 7:30 AM, & 4:30 PM 10/11 1630 AC 10/11 IV 1659 Levothyroxine Sodium 0.05 MG DAILY AC 10/11 07 AC 10/12 PO 0618 Lorazepam 1 MG .STK-MED ONE 10/12 0011 DC PO 10/12 0012 Lorazepam 1 MG ONE ONE 10/11 2315 DC 10/12 PO 10/11 2316 0016 Lorazepam 1 MG ONE ONE 10/11 1300 DC 10/11 PO 10/11 1301 1318 Lorazepam 1 MG .STK-MED ONE 10/11 1247 DC PO 10/11 1248 Melatonin 5 MG AT BEDTIME 10/12 2100 DC PO Melatonin 5 MG .STK-MED ONE 10/11 2237 DC PO 10/11 2238 Last 24 Hrs of Lab/Wilman Results Last 24 Hrs of Labs/Mics: Laboratory Tests 10/12/17 0650: Anion Gap 13, Estimated GFR > 60, BUN/Creatinine Ratio 26.7 H, Total Bilirubin 1.3, Direct Bilirubin 0.2, AST 42 H, ALT 64 H, Alkaline Phosphatase 70, Total Protein 5.9 L, Albumin 3.2 L, CBC w Diff NO MAN DIFF REQ, RBC 4.45, MCV 81.4, MCH 26.4 L, MCHC 32.4 L, RDW 13.9, MPV 10.8 H, Gran % 60.3, Lymphocytes % 24.2, Monocytes % 9.5 H, Eosinophils % 5.2 H, Basophils % 0.8, Absolute Granulocytes 4.2, Absolute Lymphocytes 1.7, Absolute Monocytes 0.7 H, Absolute Eosinophils 0.4, Absolute Basophils 0.1 10/11/17 1702: Sodium Cancelled, Potassium Cancelled, Chloride Cancelled, Carbon Dioxide Cancelled, Anion Gap Cancelled, BUN Cancelled, Creatinine Cancelled, BUN/ Creatinine Ratio Cancelled 10/11/17 1248: Potassium Cancelled 10/11/17 1248: Troponin I < 0.01 Assessment/Plan Assessment: Ms Ayala is a 72-year-old woman with a past history of paroxysmal atrial fibrillation on apixaban, 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 At the time of admission- temperatures 97.6, pulse rate 103, respiration 24, blood pressure 132/99, 98% on room air. Pertinent lab findings- WBC 10.2, hemoglobin 13.0, MCH 26.4, platelet count 311. Sodium 144, potassium 5.5 (slightly elevated likely), chloride 109, bicarbonate 18 (acedemic) Anion gap 15, BUN 27, creatinine 1.0. Glucose 162. Total bilirubin 1.4, AST 70, ALT 72 ProBNP 53573 TSH 9.070 Last echocardiogram: 13 January 2015 Mild left ventricular dilatation. Normal left ventricular ejection fraction visually estimated at > 55%. Mild left atrial dilatation. Mild mitral regurgitation. Mild aortic regurgitation. Mild tricuspid regurgitation. Trace pulmonic regurgitation. A. fib with rapid ventricular rate Patient presented with acute dyspnea with minimal exertion associated with palpitations and shortness of breath. EKG showed atrial fibrillation, irregularly irregular rhythm with rapid ventricular rate up to 130. Troponin was negative. She denied any chest pain. * Admitted to telemetry for A. fib management * Continuous hall monitor * Serial troponin and EKG neg * Started Cardizem drip at 5 mL/h, goal heart rate 90-100. Cardizem drip was stopped on 10/12/2017 * Started metoprolol 100 mg twice daily * Started on digoxin with loading dose 0.5 IV, 0.25 IV x 2 more doses 6 hours apart * Continue digoxin oral 0.25 from tomorrow * Continue home dose apixaban 5 mg twice daily * Echocardiogram - Recent outpatient echocardiogram showed ejection fraction of 3540%. * Follow-up cardiology recommendations Acute on chronic heart failure with reduced ejection fraction Patient presented with worsening dyspnea at rest of unclear etiology. Etiology in this case is likely acute decompensated heart failure with elevated proBNP. However her chest x-ray does not show any signs of overt heart failure. Given her lung exam there might be a possibility of underlying pulmonary disease. CAT scan chest showed cardiomegaly with pulmonary venous congestion and bilateral pleural effusion. * Total respiratory care * Provide supplemental oxygen to maintain saturation above 92 * She takes Lasix 40 mg daily at home. * Will continue 40 mg IV Lasix daily * Monitor ins and outs * Monitor daily weights * Follow-up echocardiogram * At some point patient will need baseline mental function tests. History of hypothyroidism Patient has history of hypothyroid, takes levothyroxine 50 mcg and liothyronine 25 mcg daily. She was found to have elevated TSH 9 at the time of admission * free T4 within normal limits. * Total T3 within normal limits * Will get records from her PCP office regarding her medication * Meanwhile will continue levothyroxine 50 mcg daily Hyperkalemia Potassium 5.5 at the time of admission. No EKG changes suggestive of hyperkalemia, she is asymptomatic. * Follow-up potassium 4.2 Abnormal liver function tests She was found to have bilirubin 1.4, ALT 17 AST 72. Repeat LFTs improved Metabolic acidosis She has bicarb 18 at the time of admission. Anion gap was 15. Hyperchloremia 111. 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 DVT prophylaxis- eliqus reg diet pain pathway ordered Problem List: 1. Atrial fibrillation with rapid ventricular response Pain Ratin Pain Location: n/a Pain Goal: Remain pain free Pain Plan: tylenol Tomorrow's Labs & Rationales: none Elliot Sim 10/12/17 1132: Attending Review Statement Attending Statement Attending MD Statement: examined this patient, discuss w/resident/PA/QUALITY FACILITATOR, agreed w/resident/PA/QUALITY FACILITATOR, discussed with family, reviewed EMR data (avail), discussed with nursing, discussed with case mgmt Attending Assessment/Plan: Afib with RVR- rates better . d/w dr portillo. daniel chauhan. do dig loading and resume metoprolol on lower dose. Acute on chronic chf systolic- Ef 35-40%. lungs much clear now. currently on 40mg iv lasix bid, will switch to 40mg iv qd for now. d/w pt and pts daughter at bedside the care plan. Acidosis-resolved. Hyperkalemia- resolved.
--- NOTE | 2017-10-12 07:29 | Discharge Summary ---
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 At the time of admission- temperatures 97.6, pulse rate 103, respiration 24, blood pressure 132/99, 98% on room air. Pertinent lab findings- WBC 10.2, hemoglobin 13.0, MCH 26.4, platelet count 311. Sodium 144, potassium 5.5 (slightly elevated likely), chloride 109, bicarbonate 18 (acedemic) Anion gap 15, BUN 27, creatinine 1.0. Glucose 162. Total bilirubin 1.4, AST 70, ALT 72 ProBNP 02386 TSH 9.070 Last echocardiogram: 13 January 2015 Mild left ventricular dilatation. Normal left ventricular ejection fraction visually estimated at > 55%. Mild left atrial dilatation. Mild mitral regurgitation. Mild aortic regurgitation. Mild tricuspid regurgitation. Trace pulmonic regurgitation. A. fib with rapid ventricular rate Patient presented with acute dyspnea with minimal exertion associated with palpitations and shortness of breath. EKG showed atrial fibrillation, irregularly irregular rhythm with rapid ventricular rate up to 130. Admitted to telemetry for atrial fibrillation with rapid ventricular rate. Serial troponin and EKG negative. She was started on Cardizem drip at 5 mL/h with a goal heart rate 90-100. She was continued on her home dose apixaban 5 mg twice daily. Facility Designer Dr. Yu on board. Cardizem drip was stopped, started on metoprolol 150 twice daily and loaded with the digoxin and started on digoxin 0.25 mg daily. She was continued on digoxin, metoprolol, however she continued to remain in A. fib with rapid rate. Status post cardioversion Patient is status post cardioversion for atrial fibrillation with rapid ventricular rate on 10/16/2017, with successful conversion to normal sinus rhythm. However on the same day she converted back to atrial flutter, rate 160, requiring IV Cardizem push and IV Cardizem drip. She remained in sinus rhythm thereafter within no more episodes of a flutter. She was started on Cardizem 30 every 8 hours and discharged on Cardizem 120 extended release daily and metoprolol 150 twice daily and digoxin 0.025 mg daily. Her dig level was 1.7, advised to follow-up Dr. Yu within 2 or 3 days for blood work and adjust digoxin medication Acute on chronic heart failure with reduced ejection fraction Patient presented with worsening dyspnea at rest possibly from acute decompensated heart failure with elevated proBNP. However her chest x-ray does not show any signs of overt heart failure. CAT scan chest showed cardiomegaly with pulmonary venous congestion and bilateral pleural effusion. She was admitted to telemetry for acute on chronic CHF. Monitor vitals every shift, maintained on finisher screwdown. She was provided supplemental oxygen as needed. She received IV Lasix 40 twice daily. Monitor daily weights, ins and outs. Later switched to oral Lasix 40 twice daily Echocardiogram was done which showed ejection fraction 35-40%. History of hypothyroidism Patient has history of hypothyroid, takes levothyroxine 50 mcg and liothyronine 25 mcg daily. She was found to have elevated TSH 9 at the time of admission, free T4 within normal limits. Total T3 within normal limits. Continued her home medication levothyroxine. Advised to follow-up with her PCP for repeat TFTs. Hyperkalemia Potassium 5.5 at the time of admission. No EKG changes suggestive of hyperkalemia, she is asymptomatic. Follow-up potassium 4.2. Abnormal liver function tests She was found to have bilirubin 1.4, ALT 17 AST 72. Repeat LFTs improved. Metabolic acidosis She has bicarb 18 at the time of admission. Anion gap was 15. Hyperchloremia 111. follow-up metabolic profile - bicarb 22. History of hypertension She takes Cozaar at home however held the medication given hyperkalemia. Losartan resumed at the time of discharge. Depression Continued home medication buspirone 30 daily Continue home medication Lexapro daily pagets disease She has not been taking ospemifene, which needs to be restarted at the time of dc Full code. DVT prophylaxis- eliqus reg diet pain pathway ordered Allergies: Coded Allergies: codeine (Severe, THROAT CLOSING, TONGUE SWELLS 10/11/17) rofecoxib (From VIOXX) (HYPERTENSION 10/11/17) Pertinent Lab Results: CT CHEST CLINICAL INFORMATION: 72-year-old female with shortness of breath, cough and wheezing. Evaluate for pneumonia. COMPARISON: CXR from 01/11/2015 and 10/11/2017. TECHNIQUE: Multidetector volumetric CT imaging of the chest was done. Axial MIP volume rendering provided. Sagittal and coronal reformatted images were obtained. DLP: 302 mGy-cm FINDINGS: LUNGS AND PLEURA: Lungs have slightly mosaic attenuation. Mild thickening of interlobular septa within lower lobes (i.e., likely mild interstitial edema). Pulmonary arteries and veins are prominent. Small bilateral pleural effusions (right larger than left) with mild compressive atelectasis of right lower lobe. Scattered linear opacities of atelectasis in both lungs. No focal consolidation. Small, 0.2 cm noncalcified nodule in the lateral aspect of the right upper lobe (image 106, series 4). 0.3 cm noncalcified pleural-based nodule of the right middle lobe (image 306, series 4). Also, 0.3 cm noncalcified nodule of the left lower lobe (image 355, series 4). MEDIASTINUM: Multichamber cardiac enlargement. Minimal atherosclerotic calcification of the left anterior descending coronary artery. No pericardial effusion. Pulmonary artery trunk is mildly dilated (3.2 cm diameter). The central right and left pulmonary arteries are dilated, as well. Mild atherosclerosis of the thoracic aorta without aneurysm. The esophagus has normal wall thickness. Thyroid gland is atrophied. No mediastinal mass. LYMPHATICS: No pathologic sized axillary, hilar or mediastinal lymph nodes. Multiple small lymph nodes of less than 1 cm short axis dimension are seen within the mediastinum. UPPER ABDOMEN: No acute findings. Gallbladder is surgically absent. Adrenal glands are normal. 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 SKELETAL AND CHEST WALL: There is hyperkyphosis and mild dextroscoliosis of the degenerated thoracic spine. No aggressive osseous lesions. IMPRESSION: 1. Cardiomegaly, pulmonary vascular congestion and likely mild interstitial edema in the lower lobes. Associated small pleural effusions (right larger than left). 2. The prominence of the pulmonary arteries suggest possibility of chronic pulmonary arterial hypertension. 3. There are a few small pulmonary and pleural-based nodules of < 0.4 cm size. Based on updated guidelines from the Fleischner Society, routine CT follow-up is not required in a low-risk patient and is considered optional at 12 months in a high risk patient. cxr FINDINGS: Cardiac leads overlie the chest. The lungs are well expanded. There is no focal consolidation, edema, or effusion. Increased bronchial wall thickening noted. No pneumothorax. The cardiomediastinal silhouette is within normal limits. No acute osseous abnormality. IMPRESSION: No dense consolidation. Bronchial wall thickening can be seen with a small airways process such as asthma or atypical/viral infection. Disposition Summary Disposition Principal Diagnosis: Atrial fibrillation with rapid ventricular rate Additional Diagnosis: Acute on chronic congestive heart failure Discharge Disposition: home health services Discharge Instructions General Discharge Information Code Status: Full Code Patient's Diet: Low-salt diet Patient's Activity: As tolerated Follow-Up Instructions/Appts: Follow-up with PCP in 1 week after discharge Follow-up with special events driver in 1 week after discharge Medications at Discharge Discharge Medications: Stop taking the following medications: Losartan Potassium (Losartan Potassium) 50 MG TABLET ORAL PM Qty = 30 Continue taking these medications: Buspirone HCl (Buspirone HCl) 30 MG TABLET 1 Tablet ORAL DAILY Comments: Last Taken:10/18/17 Time:0900 Ibuprofen/Diphenhydramine Cit (Advil Pm Caplet) 200 MG-38 MG TABLET 2 Tablet ORAL TAKE AT BEDTIME Levothyroxine Sodium (Levothyroxine Sodium) 50 MCG TABLET 1 Tablet ORAL DAILY Qty = 30 Comments: Last Taken:10/18/17 Time:0700 Metoprolol Tartrate (Metoprolol Tartrate) 50 MG TABLET 3 Tablet ORAL TWICE DAILY Qty = 60 Comments: Last Taken:10/18/17 Time:0900 Alendronate Sodium (Alendronate Sodium) 70 MG TABLET 1 Tablet ORAL Once a Week Qty = 4 Instructions: in the morning, at least 30 minutes before the first food, beverage, or medication of the day Diltiazem HCl (Cartia Xt) 120 MG CAP.ER.24H 1 Capsule ORAL DAILY Qty = 15 Apixaban (Eliquis) 5 MG TABLET 1 Tablet ORAL TWICE DAILY Comments: Last Taken:10/18/17 Time:0900 Ospemifene (Osphena) 60 MG TABLET 1 Tablet ORAL DAILY Liothyronine Sodium (Cytomel) 25 MCG TABLET 1 Tablet ORAL DAILY Qty = 30 Start taking the following new medications: Digoxin (Digoxin) 250 MCG TABLET 1 Tablet ORAL DAILY Qty = 30 No Refills Instructions: . Comments: Last Taken:10/17/17 Time:5PM Digoxin (Digoxin) 250 MCG TABLET 0.25 Milligram ORAL 5 PM Qty = 30 No Refills The following medications have been changed: Old: Furosemide (Furosemide) 40 MG TABLET 1 Tablet ORAL DAILY New: Furosemide (Furosemide) 40 MG TABLET 1 Tablet ORAL TWICE DAILY Qty = 60 Comments: Last Taken:10/18/17 Time:0900 Copies To: Brittni Cabrera MD
[2017-10-12 08:12] LABS: ABSOLUTE BASOPHIL COUNT 0.1 /CUMM (0.0-0.2); ABSOLUTE EOSINOPHIL COUNT 0.4 /CUMM (0.0-0.7); ABSOLUTE GRANULOCYTE CT 4.2 /CUMM (1.4-6.5); ABSOLUTE LYMPH COUNT 1.7 /CUMM (1.2-3.4); ABSOLUTE MONOCYTE COUNT 0.7 /CUMM (0.10-0.60); BASOPHIL % 0.8 % (0.0-2.0); EOSINOPHIL % 5.2 % (0-5); GRANULOCYTE % 60.3 % (42.2-75.2); HEMATOCRIT 36.2 % (37-47); MEAN CORPUSCULAR HGB 26.4 PG (27.0-31.0); MEAN CORPUSCULAR HGB CONC 32.4 G/DL (33.0-37.0); MEAN CORPUSCULAR VOLUME 81.4 FL (81.0-99.0); MEAN PLATELET VOLUME 10.8 FL (7.4-10.4); PLATELET COUNT 248 /CUMM (130-400); RBC DISTRIBUTION WIDTH 13.9 % (11.5-14.5); RED BLOOD CELL CT 4.45 /CUMM (4.20-5.40)
--- NOTE | 2017-10-12 10:29 | Patient Discharge Instructions ---
Discharge Instructions General Discharge Information You were seen/treated for: Atrial fibrillation CHF Special Instructions: Please follow-up with PCP in 1 week after discharge Please follow-up with hair cutter in 1 week after discharge Diet Continue normal diet: Yes Activity Full Activity/No Limits: Yes Acute Coronary Syndrome Inclusion Criteria At DC or during hospital stay patient has or had the following: ACS DIAGNOSIS No Discharge Core Measures Meds if any: Prescribed or Continued at Discharge Meds if any: NOT Prescribed or Continued at Discharge Congestive Heart Failure Inclusion Criteria At DC or during hospital stay patient has or had the following: CHF DIAGNOSIS No Discharge Core Measures Meds if any: Prescribed or Continued at Discharge Meds if any: NOT Prescribed or Continued at Discharge Cerebrovascular accident Inclusion Criteria At DC or during hospital stay patient has or had the following: CVA/TIA Diagnosis No Discharge Core Measures Meds if any: Prescribed or Continued at Discharge Meds if any: NOT Prescribed or Continued at Discharge Venous thromboembolism Inclusion Criteria VTE Diagnosis No VTE Type NONE VTE Confirmed by (Test) NONE Discharge Core Measures - Per Current guidelines, there needs to be overlap - treatment for the first 5 days of Warfarin therapy. - If discharged on Warfarin prior to 5 days of - overlap therapy, the patient will need to be - assessed for post discharge needs including - *Post discharge parental anticoagulation - *Warfarin and/or parental anticoagulation education - *Follow up date to check INR post discharge At least 5 days overlap therapy as Inpatient No Meds if any: Prescribed or Continued at Discharge Note: Overlap Therapy is Warfarin and Anticoagulant Meds if any: NOT Prescribed or Continued at Discharge
--- NOTE | 2017-10-12 10:43 | PN- Cardiology ---
Subjective Subjective: The patient reports feeling better today. Shortness of breath is improving. No chest pain. No palpitations. Ventricular rate is mostly controlled on IV diltiazem. Objective Vital Signs and I&Os Vital Signs Date Time Temp Pulse Resp B/P B/P Pulse O2 O2 Flow FiO2 Mean Ox Delivery Rate 10/12 0800 95 Nasal 1.0L Cannula 10/12 0727 97.7 121 20 110/60 93 10/12 0000 Nasal 1.0L Cannula 10/11 2206 98.3 112 20 110/60 96 10/11 1600 Nasal 1.0L Cannula 10/11 1400 97.6 113 20 120/80 93 Nasal 1.0L Cannula 10/11 1054 Room Air Intake & Output 10/12 0800 10/12 0000 10/11 1600 10/11 0810/11 0000 Intake Total 110 350 640 60 Output Total 550 1650 400 700 Balance -440 -1300 240 -640 Intake, IV 50 40 Intake, Oral 110 300 600 60 Number 1 Bowel Movements Output, Urine 550 1650 400 700 Patient 221 lb 185 lb Weight Weight Reported by Patient Measurement Method Physical Exam: Gen: NAD HEENT: normal Lungs: clear to auscultation, normal resp. effort Heart: Regular rate, S1, S2, 2/6 aortic murmur Abdomen: Soft, nontender, no masses Extremities: No clubbing, cyanosis, or edema. Neuro: Alert and oriented x 3, cranial nerves intact Current Medications: Current Medications Sig/Mekhi Start time Last Medication Dose Route Stop Time Status Admin Albuterol Sulfate 2 PUF Q4P PRN 10/11 1100 AC INH Apixaban 5 MG BID 10/11 899 AC 10/11 PO 2148 Benzocaine/Menthol 1 GUILLERMO Q2P PRN 10/11 0915 AC 10/11 PO 1045 Buspirone HCl 30 MG DAILY 10/11 09 AC 10/11 PO 1209 Diltiazem HCl 125 MG Q24H 10/11 0545 AC 10/12 Sodium Chloride 100 ML IV 0331 Furosemide 40 MG 7:30 AM, & 4:30 PM 10/11 1630 AC 10/11 IV 1659 Levothyroxine Sodium 0.05 MG DAILY AC 10/11 07 AC 10/12 PO 0618 Lorazepam 1 MG .STK-MED ONE 10/12 0011 DC PO 10/12 0012 Lorazepam 1 MG ONE ONE 10/11 2315 DC 10/12 PO 10/11 2316 0016 Lorazepam 1 MG ONE ONE 10/11 1300 DC 10/11 PO 10/11 1301 1318 Lorazepam 1 MG .STK-MED ONE 10/11 1247 DC PO 10/11 1248 Melatonin 5 MG AT BEDTIME 10/12 2100 DC PO Melatonin 5 MG .STK-MED ONE 10/11 2236 DC PO 10/11 2237 Results Last 48 Hrs of Labs/Mics: Laboratory Tests 10/12/17 0650: Anion Gap 13, Estimated GFR > 60, BUN/Creatinine Ratio 26.7 H, Total Bilirubin 1.3, Direct Bilirubin 0.2, AST 42 H, ALT 64 H, Alkaline Phosphatase 70, Total Protein 5.9 L, Albumin 3.2 L, CBC w Diff NO MAN DIFF REQ, RBC 4.45, MCV 81.4, MCH 26.4 L, MCHC 32.4 L, RDW 13.9, MPV 10.8 H, Gran % 60.3, Lymphocytes % 24.2, Monocytes % 9.5 H, Eosinophils % 5.2 H, Basophils % 0.8, Absolute Granulocytes 4.2, Absolute Lymphocytes 1.7, Absolute Monocytes 0.7 H, Absolute Eosinophils 0.4, Absolute Basophils 0.1 10/11/17 1702: Sodium Cancelled, Potassium Cancelled, Chloride Cancelled, Carbon Dioxide Cancelled, Anion Gap Cancelled, BUN Cancelled, Creatinine Cancelled, BUN/ Creatinine Ratio Cancelled 10/11/17 1248: Potassium Cancelled 10/11/17 1248: Troponin I < 0.01 10/11/17 0446: Anion Gap 15, Estimated GFR 55 L, BUN/Creatinine Ratio 27.0 H, Glucose 162 H, Hemoglobin A1c 6.5 H, Calcium 9.0, Total Bilirubin 1.4 H, Direct Bilirubin 0.3 , AST 70 H, ALT 72 H, Alkaline Phosphatase 80, Troponin I < 0.01, Pro-B- Natriuretic Pept 02237 H, Total Protein 6.8, Albumin 3.8, Triglycerides 80, Cholesterol 123, LDL Cholesterol, Calc 75, HDL Cholesterol 32 L, Cholesterol/ HDL Ratio 4, Amylase 40, Lipase 117, TSH 9.070 H, Free T4 1.24, Total T3 1.09, PT 27.4 H, INR 2.49 H, APTT 36, CBC w Diff NO MAN DIFF REQ, RBC 4.92, MCV 82.2 , MCH 26.4 L, MCHC 32.1 L, RDW 14.1, MPV 10.4, Gran % 68.7, Lymphocytes % 18.9 L, Monocytes % 10.0 H, Eosinophils % 1.8, Basophils % 0.6, Absolute Granulocytes 7.0 H, Absolute Lymphocytes 1.9, Absolute Monocytes 1.0 H, Absolute Eosinophils 0.2, Absolute Basophils 0.1 10/11/17 0436: Dmd-A-Ndygsseexxz Pept Cancelled, TSH Cancelled Recent Imaging Studies: Echocardiogram 09/27/17: Normal LV size. LVEF 3540%. Moderate mitral regurgitation. Moderate to severe tricuspid regurgitation. Assessment/Plan Assessment/Plan Assessment: 1. Acute on chronic heart failure with reduced ejection fraction. Recent outpatient echocardiogram showed ejection fraction of 3540% 2. Moderate mitral regurgitation with moderate to severe tricuspid regurgitation 3. Atrial fibrillation with elevated ventricular rate 4. History of hypothyroidism with elevated TSH of 9 5. Abnormal liver function tests Plan: * Continue IV Lasix * Monitor input and output * Check basic metabolic profile daily * Start digoxin for rate control and heart failure. Would give loading dose of 0.5 mg IV 1 followed by 0.25 mg IV every 6 hours 2 doses. Then give 0.25 mg p.o. daily starting tomorrow. * Restart metoprolol at reduced dose of 100 mg p.o. twice daily * Discontinue IV diltiazem after starting digoxin and metoprolol * Continue Eliquis * The patient has previously declined cardioversion, however she is now agreeable to having a cardioversion. Will plan on doing cardioversion once clinically stable. If the patient is still in the hospital Monday, will plan on doing cardioversion at that time. If she is discharged over the weekend, the cardioversion will be arranged as an outpatient. Continue telemetry? Yes
[2017-10-12] MEDS ORDERED: DIGOXIN250 MCG PO (11:43)
[2017-10-12 15:39] VITALS: BP 114/60
[2017-10-12 21:23] VITALS: BP 108/20; BP 108/70
[2017-10-12 22:12] VITALS: BP 106/68
[2017-10-13 06:13] VITALS: BP 126/74
[2017-10-13 07:46] LABS: ABSOLUTE BASOPHIL COUNT 0 /CUMM (0.0-0.2); ABSOLUTE EOSINOPHIL COUNT 0.3 /CUMM (0.0-0.7); ABSOLUTE GRANULOCYTE CT 3.7 /CUMM (1.4-6.5); ABSOLUTE MONOCYTE COUNT 0.8 /CUMM (0.10-0.60); BASOPHIL % 0.6 % (0.0-2.0); EOSINOPHIL % 4.9 % (0-5); GRANULOCYTE % 54.4 % (42.2-75.2); HEMATOCRIT 39.1 % (37-47); MEAN CORPUSCULAR HGB 26.8 PG (27.0-31.0); MEAN CORPUSCULAR VOLUME 81.3 FL (81.0-99.0); MEAN PLATELET VOLUME 10.4 FL (7.4-10.4); PLATELET COUNT 243 /CUMM (130-400); RED BLOOD CELL CT 4.81 /CUMM (4.20-5.40); WHITE BLOOD CELL COUNT 6.9 /CUMM (4.8-10.8)
--- NOTE | 2017-10-13 09:19 | ECHOCARDIOGRAM REPORT ---
ROLDAN SALGADO Age: 72 : 1945 Gender: F Exam Date: 10/12/2017 09:27 Exam Location: [address] Ht (in): 66 Wt (lb): 185 BSA: 2.00 BP: 118 / 72 Ordering Physician: Dina Myles MD Referring Physician: Dina Myles MD Technologist: Bari Vogel [facility] Room Number: 189-1 Indications: AFIB/FLUTTER Rhythm: Atrial fibrillation Technical Quality: Good FINDINGS Left Ventricle Normal size left ventricle. Mild concentric left ventricular hypertrophy. Moderately decreased left ventricular systolic function. Left ventricular ejection fraction is estimated at 35 %. Right Ventricle Normal right ventricular size and function. Right Atrium Moderate right atrial dilatation. Left Atrium Moderate left atrial dilatation. Mitral Valve Mitral valve mildly thickened. Moderate mitral regurgitation. Aortic Valve Aortic valve mildly thickened.no aortic stenosis. No aortic regurgitation. Tricuspid Valve Tricuspid valve not well visualized, grossly normal. Mild to moderate tricuspid regurgitation. No evidence of pulmonary hypertension. Pulmonic Valve Pulmonic valve not well visualized, grossly normal. Trace pulmonic regurgitation. Pericardium No pericardial effusion. Great Vessels Normal size aortic root. CONCLUSIONS Normal size left ventricle. Mild concentric left ventricular hypertrophy. Moderately decreased left ventricular systolic function. Moderate right atrial dilatation. Left ventricular ejection fraction is estimated at 35 %. Moderate left atrial dilatation. Mild to moderate tricuspid regurgitation. Trace pulmonic regurgitation .Mild to moderate tricuspid regurgitation. Michael Yu M.D. (Electronically Signed) Final Date: 13 October 2017 09:18 MEASUREMENTS (Male / Female) Normal Values 2D ECHO LV Diastolic Diameter PLAX 4.7 cm 4.2 - 5.9 / 3.9 - 5.3 cm LV Systolic Diameter PLAX 4.0 cm 2.1 - 4.0 cm LV Fractional Shortening PLAX 14.9 % 25 - 46 % LV Ejection Fraction 2D Teich 31.6 % IVS Diastolic Thickness 1.2 cm LVPW Diastolic Thickness 1.2 cm LV Relative Wall Thickness 0.5 RV Internal Dim ED PLAX 3.2 cm 1.9 - 3.8 cm LVOT Diameter 1.8 cm Aortic Root Diameter 2.8 cm LA Systolic Diameter LX 4.8 cm 3.0 - 4.0 / 2.7 - 3.8 cm LA Volume 121.0 cm 18 - 58 / 22 - 52 cm Ascending Aorta Diameter 3.0 cm DOPPLER AV Peak Velocity 119.0 cm/s AV Peak Gradient 5.7 mmHg AV Mean Velocity 76.3 cm/s AV Mean Gradient 3.0 mmHg AV Velocity Time Integral 21.7 cm LVOT Peak Velocity 67.7 cm/s LVOT Peak Gradient 1.8 mmHg LVOT Mean Velocity 40.5 cm/s LVOT Mean Gradient 1.0 mmHg LVOT Velocity Time Integral 12.8 cm LVOT Stroke Volume 32.6 cm AV Area Cont Eq vti 1.5 cm AV Area Cont Eq pk 1.4 cm MV Peak Velocity 96.5 cm/s MV Peak Gradient 3.7 mmHg MV Mean Velocity 54.9 cm/s MV Mean Gradient 1.0 mmHg Mitral E Point Velocity 79.5 cm/s MV PHT Velocity 97.7 cm/s MV Deceleration [place] 571.0 cm/s MV Pressure Half Time 51.3 ms MV Area PHT 4.3 cm MV Deceleration Time 211.0 ms MR Peak Velocity 399.0 cm/s MR Peak Gradient 63.7 mmHg TR Peak Velocity 267.0 cm/s TR Peak Gradient 28.5 mmHg Right Atrial Pressure 10.0 mmHg Pulmonary Artery Systolic Pressure 38.5 mmHg Right Ventricular Systolic Pressure 38.5 mmHg PV Peak Velocity 95.1 cm/s PV Peak Gradient 3.6 mmHg PV Mean Velocity 60.7 cm/s PV Mean Gradient 2.0 mmHg PV Velocity Time Integral 17.9 cm
--- NOTE | 2017-10-13 11:34 | PN- Housestaff ---
Ronny Sanford 10/13/17 1134: Subjective Follow-up For: Atrial fibrillation with rapid ventricular rate Congestive heart failure with preserved ejection fraction Abnormal thyroid function tests Hyperkalemia resolved Transaminitis resolved Metabolic acidosis resolved Complaints: no complaints Tele-Events Since Last Visit: Atrial fibrillation, rate varying between 85-120 Subjective: Patient was seen and examined this morning. She is alert awake and oriented to time place and person. No acute events noticed. Patient reports improvement of shortness of breath. However she reports that her heart races when she does minimal activity. Denied any chest pain, cough, fever, chills. Review of Systems Constitutional: Reports: see HPI. Objective Last 24 Hrs of Vital Signs/I&O Vital Signs Date Time Temp Pulse Resp B/P B/P Pulse O2 O2 Flow FiO2 Mean Ox Delivery Rate 10/13 0754 104 126/74 10/13 0613 98.3 104 18 126/74 91 Room Air 10/12 2350 102 106/74 10/12 2212 98.3 100 18 106/68 91 10/12 2123 98.3 142 18 108/70 94 Room Air 10/12 2113 111 108/70 10/12 1932 166 124/70 10/12 1539 97.6 123 20 114/60 95 10/12 1156 110 112/60 10/12 1155 110 112/60 Intake & Output 10/13 1600 10/13 0800 10/13 0000 Intake Total 50 Output Total 250 550 Balance -200 -550 Intake, IV 0 Intake, Oral 50 Number 0 Bowel Movements Output, Urine 250 550 Patient 98.089 kg Weight Physical Exam General Appearance: Alert, Oriented X3, Cooperative, No Acute Distress Other Physical Findings: HEENT Atraumatic, PERRLA, EOMI, Mucous Membr. moist/pink Neck Supple, No JVD, No thryomegaly Lymphatic Axillary nl, Cervical nl Cardiovascular Normal S1, Normal S2, No Murmurs, irregularly irregular Lungs wheezes, bilateral normal Air Movement Abdomen Normal Bowel Sounds, Soft, No Tenderness, No Hepatospenomegaly Neurological Normal Speech, Strength at 5/5 X4 Ext, Normal Tone, Sensation Intact, Cranial Nerves 3-12 NL, Reflexes 2+ Extremities No Cyanosis, Normal Pulses, pedal edema 1+ Vascular Normal Pulses, Pulses Symmetrical Current Medications: Current Medications Sig/Mekhi Start time Last Medication Dose Route Stop Time Status Admin Albuterol Sulfate 2 PUF Q4P PRN 10/11 1100 AC INH Apixaban 5 MG BID 10/11 0900 AC 10/13 PO 0754 Benzocaine/Menthol 1 GUILLERMO Q2P PRN 10/11 0915 AC 10/11 PO 1045 Buspirone HCl 30 MG DAILY 10/11 0900 AC 10/13 PO 0754 Digoxin 0.25 MG 1700 10/13 1700 AC PO Digoxin 0.25 MG ONCE ONE 10/13 0000 DC 10/12 IV 10/13 0001 2350 Digoxin 0.25 MG 1800 10/12 1800 DC 10/12 IV 10/12 1801 1932 Furosemide 40 MG 7:30AM 10/13 0730 AC 10/13 IV 0756 Levothyroxine Sodium 0.05 MG DAILY AC 10/11 0700 AC 10/13 PO 0550 Lorazepam 0.5 MG ONCE ONE 10/12 2115 DC 10/12 PO 10/12 2116 2307 Melatonin 5 MG AT BEDTIME 10/12 2100 DC PO Metoprolol Tartrate 150 MG BID 10/13 2100 AC PO Metoprolol Tartrate 50 MG ONCE ONE 10/13 1015 DC 10/13 PO 10/13 1016 1030 Metoprolol Tartrate 100 MG BID 10/12 1145 DC 10/13 PO 0754 Patient Medication 1 ED ONE ONE 10/12 1615 MD Teaching ED 10/12 1616 Last 24 Hrs of Lab/Wilman Results Last 24 Hrs of Labs/Mics: Laboratory Tests 10/13/17 0614: Anion Gap 10, Estimated GFR > 60, BUN/Creatinine Ratio 24.4, Total Bilirubin 1.1 , Direct Bilirubin 0.2, AST 30, ALT 50, Alkaline Phosphatase 65, Total Protein 5.6 L, Albumin 3.0 L, CBC w Diff NO MAN DIFF REQ, RBC 4.81, MCV 81.3, MCH 26.8 L, MCHC 33.0, RDW 14.0, MPV 10.4, Gran % 54.4, Lymphocytes % 29.2, Monocytes % 10.9 H, Eosinophils % 4.9, Basophils % 0.6, Absolute Granulocytes 3.7, Absolute Lymphocytes 2.0, Absolute Monocytes 0.8 H, Absolute Eosinophils 0.3, Absolute Basophils 0 Assessment/Plan Assessment: Ms Ayala is a 72-year-old woman with a past history of paroxysmal atrial fibrillation on apixaban, 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 At the time of admission- temperatures 97.6, pulse rate 103, respiration 24, blood pressure 132/99, 98% on room air. Pertinent lab findings- WBC 10.2, hemoglobin 13.0, MCH 26.4, platelet count 311. Sodium 144, potassium 5.5 (slightly elevated likely), chloride 109, bicarbonate 18 (acedemic) Anion gap 15, BUN 27, creatinine 1.0. Glucose 162. Total bilirubin 1.4, AST 70, ALT 72 ProBNP 82721 TSH 9.070 Last echocardiogram: 13 January 2015 Mild left ventricular dilatation. Normal left ventricular ejection fraction visually estimated at > 55%. Mild left atrial dilatation. Mild mitral regurgitation. Mild aortic regurgitation. Mild tricuspid regurgitation. Trace pulmonic regurgitation. A. fib with rapid ventricular rate Patient presented with acute dyspnea with minimal exertion associated with palpitations and shortness of breath. EKG showed atrial fibrillation, irregularly irregular rhythm with rapid ventricular rate up to 130. Troponin was negative. She denied any chest pain. * Admitted to telemetry for A. fib management * Continuous member of [employer] * Serial troponin and EKG neg * Started Cardizem drip at 5 mL/h, goal heart rate 90-100. Cardizem drip was stopped on 10/12/2017 * Started metoprolol 150 mg twice daily * Started on digoxin with loading dose 0.5 IV, 0.25 IV x 2 more doses 6 hours apart * Continue digoxin oral 0.25mg daily- day1 * Continue home dose apixaban 5 mg twice daily * Echocardiogram showed ejection fraction of 3540%. * Follow-up cardiology recommendations * Patient is now agreeable to having a cardioversion. As per pie icer machine - plan is to do cardioversion once she is clinically stable. If she is still in hospital Monday - will plan cardioversion. Otherwise cardioversion will be arranged as an outpatient. Acute on chronic heart failure with reduced ejection fraction Patient presented with worsening dyspnea at rest of unclear etiology. Etiology in this case is likely acute decompensated heart failure with elevated proBNP. However her chest x-ray does not show any signs of overt heart failure. Given her lung exam there might be a possibility of underlying pulmonary disease. CAT scan chest showed cardiomegaly with pulmonary venous congestion and bilateral pleural effusion. * Total respiratory care * Provide supplemental oxygen to maintain saturation above 92 * She takes Lasix 40 mg daily at home. * Will continue 40 mg IV Lasix daily * Monitor ins and outs * Monitor daily weights * Follow-up echocardiogram ef 35% History of hypothyroidism Patient has history of hypothyroid, takes levothyroxine 50 mcg and liothyronine 25 mcg daily. She was found to have elevated TSH 9 at the time of admission * free T4 within normal limits. * Total T3 within normal limits * Will get records from her PCP office regarding her medication * Meanwhile will continue levothyroxine 50 mcg daily Hyperkalemia Potassium 5.5 at the time of admission. No EKG changes suggestive of hyperkalemia, she is asymptomatic. * Follow-up potassium 4.2 Abnormal liver function tests She was found to have bilirubin 1.4, ALT 17 AST 72. Repeat LFTs improved Metabolic acidosis She has bicarb 18 at the time of admission. Anion gap was 15. Hyperchloremia 111. follow-up metabolic profile - bicarb 22 History of hypertension She takes Cozaar at home however held the medication for now given hyperkalemia will resume at the time of discharge Depression Continue home medication buspirone 30 daily pagets disease She has not been taking ospemifene, which needs to be restarted at the time of dc Full code. DVT prophylaxis- eliqus reg diet pain pathway ordered Problem List: 1. Atrial fibrillation with rapid ventricular response Pain Ratin Pain Location: n/a Pain Goal: Remain pain free Pain Plan: tylenol Tomorrow's Labs & Rationales: bep digoxin level Elliot Sim 10/13/17 1305: Attending Review Statement Attending Statement Attending MD Statement: examined this patient, discuss w/resident/PA/[employer], agreed w/resident/PA/[employer], reviewed EMR data (avail), discussed with nursing, discussed with case mgmt Attending Assessment/Plan: Afib with rvr - pt still HR going up to 130-140s . will increase metoprolol to 150mg po bid and will cont with digoxin. pt was loaded with digoxin . d/w pt and cardiology the care plan. may be candidate for cardioversion or add cardizem for better rate control if cont to be in afib with rvr.
--- NOTE | 2017-10-13 12:21 | PN- Cardiology ---
Subjective Subjective: The patient continues to feel somewhat better. Respiratory status improved. Not at baseline yet. Lower extremity edema improving as well Objective Vital Signs and I&Os Vital Signs Date Time Temp Pulse Resp B/P B/P Pulse O2 O2 Flow FiO2 Mean Ox Delivery Rate 10/13 0754 104 126/74 10/13 612 98.3 104 18 126/74 91 Room Air 10/12 2350 102 106/74 10/12 2212 98.3 100 18 106/68 91 10/12 2123 98.3 142 18 108/70 94 Room Air 10/12 2113 111 108/70 10/12 1932 166 124/70 10/12 1539 97.6 123 20 114/60 95 Intake & Output 10/13 1600 10/13 0800 10/13 0000 10/12 1600 10/12 0800 10/12 0000 Intake Total 50 600 110 350 Output Total 250 550 883 763 5056 Balance -200 -550 -100 -440 -1300 Intake, IV 0 50 50 Intake, Oral 50 550 110 300 Number 0 Bowel Movements Output, Urine 250 550 208 144 7041 Patient 216 lb 221 lb Weight Current Medications: Current Medications Sig/Mekhi Start time Last Medication Dose Route Stop Time Status Admin Albuterol Sulfate 2 PUF Q4P PRN 10/11 1100 AC INH Apixaban 5 MG BID 10/11 09 AC 10/13 PO 0754 Benzocaine/Menthol 1 GUILLERMO Q2P PRN 10/11 0915 AC 10/11 PO 1045 Buspirone HCl 30 MG DAILY 10/11 0900 AC 10/13 PO 0754 Digoxin 0.25 MG 1700 10/13 1700 AC PO Digoxin 0.25 MG ONCE ONE 10/13 0000 DC 10/12 IV 10/13 0001 2350 Digoxin 0.25 MG 1800 10/12 1800 DC 10/12 IV 10/12 1801 1932 Furosemide 40 MG 7:30AM 10/13 0730 AC 10/13 IV 0756 Levothyroxine Sodium 0.05 MG DAILY AC 10/11 0700 AC 10/13 PO 0550 Lorazepam 0.5 MG ONCE ONE 10/12 2114 DC 10/12 PO 10/13 2115 2307 Melatonin 5 MG AT BEDTIME 10/12 2100 DC PO Metoprolol Tartrate 150 MG BID 10/13 2100 AC PO Metoprolol Tartrate 50 MG ONCE ONE 10/13 1015 DC 10/13 PO 10/13 1016 1030 Metoprolol Tartrate 100 MG BID 10/12 1145 IL 10/13 PO 0754 Patient Medication 1 ED ONE ONE 10/12 1615 [facility] ED 10/12 1616 Results Last 48 Hrs of Labs/Mics: Laboratory Tests 10/13/17 0614: Anion Gap 10, Estimated GFR > 60, BUN/Creatinine Ratio 24.4, Total Bilirubin 1.1 , Direct Bilirubin 0.2, AST 30, ALT 50, Alkaline Phosphatase 65, Total Protein 5.6 L, Albumin 3.0 L, CBC w Diff NO MAN DIFF REQ, RBC 4.81, MCV 81.3, MCH 26.8 L, MCHC 33.0, RDW 14.0, MPV 10.4, Gran % 54.4, Lymphocytes % 29.2, Monocytes % 10.9 H, Eosinophils % 4.9, Basophils % 0.6, Absolute Granulocytes 3.7, Absolute Lymphocytes 2.0, Absolute Monocytes 0.8 H, Absolute Eosinophils 0.3, Absolute Basophils 0 10/12/17 0650: Anion Gap 13, Estimated GFR > 60, BUN/Creatinine Ratio 26.7 H, Total Bilirubin 1.3, Direct Bilirubin 0.2, AST 42 H, ALT 64 H, Alkaline Phosphatase 70, Total Protein 5.9 L, Albumin 3.2 L, CBC w Diff NO MAN DIFF REQ, RBC 4.45, MCV 81.4, MCH 26.4 L, MCHC 32.4 L, RDW 13.9, MPV 10.8 H, Gran % 60.3, Lymphocytes % 24.2, Monocytes % 9.5 H, Eosinophils % 5.2 H, Basophils % 0.8, Absolute Granulocytes 4.2, Absolute Lymphocytes 1.7, Absolute Monocytes 0.7 H, Absolute Eosinophils 0.4, Absolute Basophils 0.1 10/11/17 1702: Sodium Cancelled, Potassium Cancelled, Chloride Cancelled, Carbon Dioxide Cancelled, Anion Gap Cancelled, BUN Cancelled, Creatinine Cancelled, BUN/ Creatinine Ratio Cancelled 10/11/17 1248: Potassium Cancelled 10/11/17 1248: Troponin I < 0.01 Assessment/Plan Assessment/Plan Assessment: 1. Acute on chronic heart failure with reduced ejection fraction. Recent outpatient echocardiogram showed ejection fraction of 3540% 2. Moderate mitral regurgitation with moderate to severe tricuspid regurgitation 3. Atrial fibrillation with elevated ventricular rate 4. History of hypothyroidism with elevated TSH of 9 5. Abnormal liver function tests Plan: * Continue IV Lasix * Monitor input and output * Check basic metabolic profile daily * Continue digoxin * In view of elevated persistent heart rate, continue metoprolol but increase dose back to 150 twice daily. Further medication changes to be decided upon after heart rate response to increase metoprolol assessed * Discontinue IV diltiazem after starting digoxin and metoprolol * Continue Eliquis * The patient has previously declined cardioversion, however she is now agreeable to having a cardioversion. Will plan on doing cardioversion once clinically stable. If the patient is still in the hospital Monday, will plan on doing cardioversion at that time. If she is discharged over the weekend, the cardioversion will be arranged as an outpatient. Continue telemetry? Yes
[2017-10-13 14:00] VITALS: BP 118/60
[2017-10-13 22:37] VITALS: BP 112/70
[2017-10-14 07:18] VITALS: BP 110/70
--- NOTE | 2017-10-14 09:18 | PN- Housestaff ---
Ana BEATTY,Fahad 10/14/17917: Subjective Follow-up For: Atrial fibrillation with rapid ventricular rate, better HFrEF Abnormal thyroid function tests Hyperkalemia resolved Transaminitis resolved Metabolic acidosis resolved Tele-Events Since Last Visit: Atrial fibrillation, heart rate ranging from 69-106. Subjective: I followed up and examined the patient today. She is resting comfortably in bed , and does not appear to be in any distress. Nursing staff has reported anxiety related issue every night, which was being taken care of by as needed medication , and will require reevaluation later today. Review of Systems Constitutional: Reports: see HPI. Objective Last 24 Hrs of Vital Signs/I&O Vital Signs Date Time Temp Pulse Resp B/P B/P Pulse O2 O2 Flow FiO2 Mean Ox Delivery Rate 10/14 717 97.5 70 18 110/70 96 Room Air 10/13 2237 97.9 148 18 112/70 94 10/13 1645 121 10/13 1400 97.6 82 20 118/60 96 Intake & Output 10/14 1600 10/14 0800 10/14 0000 Intake Total 100 Output Total 300 250 Balance -300 -150 Intake, Oral 100 Output, Urine 300 250 Patient 95.963 kg Weight Physical Exam General Appearance: Alert, Oriented X3, Cooperative, obese Other Physical Findings: HEENT Atraumatic, PERRLA, EOMI, Mucous Membr. moist/pink Neck Supple, No JVD, No thryomegaly Cardiovascular Normal S1, Normal S2, No Murmurs, irregularly irregular Lungs bilateral normal Air Movement Abdomen Normal Bowel Sounds, Soft, No Tenderness, No Hepatospenomegaly Neurological grossly intact Extremities No Cyanosis, Normal Pulses, pedal edema 1+ Vascular Normal Pulses, Pulses Symmetrical Current Medications: Current Medications Sig/Mekhi Start time Last Medication Dose Route Stop Time Status Admin Albuterol Sulfate 2 PUF Q4P PRN 10/11 1100 AC INH Apixaban 5 MG BID 10/11 09 AC 10/13 PO 2131 Benzocaine/Menthol 1 GUILLERMO Q2P PRN 10/11 0915 AC 10/11 PO 1045 Buspirone HCl 30 MG DAILY 10/11 09 AC 10/13 PO 0754 Digoxin 0.25 MG 1700 10/13 1700 AC 10/13 PO 1645 Furosemide 40 MG 7:30AM 10/13 0730 AC 10/14 IV 0612 Levothyroxine Sodium 0.05 MG DAILY AC 10/11 0700 AC 10/14 PO 0611 Lorazepam 0.5 MG ONE ONE 10/13 2300 DC 10/13 PO 10/13 2301 2300 Melatonin 5 MG ONCE ONE 10/13 2300 CAN PO 10/13 2301 Metoprolol Tartrate 150 MG BID 10/13 2100 AC 10/13 PO 2130 Metoprolol Tartrate 50 MG ONCE ONE 10/13 1015 DC 10/13 PO 10/13 1016 1030 Metoprolol Tartrate 100 MG BID 10/12 1145 DC 10/13 PO 0754 Ondansetron HCl 4 MG ONCE ONE 10/13 1315 DC IV 10/13 1316 Patient Medication 1 ED ONE ONE 10/13 1330 DC Teaching ED 10/13 1331 Last 24 Hrs of Lab/Wilman Results Last 24 Hrs of Labs/Mics: Laboratory Tests 10/14/17 0650: Anion Gap 10, Estimated GFR > 60, BUN/Creatinine Ratio 28.8 H, Digoxin 1.4 Assessment/Plan Assessment: 72-year-old female with multiple medical problems, who presented with acute shortness of breath, is being treated in telemetry for the management of following issues: #Atrial fibrillation with rapid ventricular response Patient's clinical or rate has improved, and thus will continue with current cardiac medication. Continue with Eliquis for anticoagulation. And plan to keep patient nothing by mouth after midnight on Monday for CARMEN/?cardioversion on Monday. (ORDERS PLACED) #Acute on chronic heart failure with reduced ejection fraction, systolic failure Patient continues to get better, and we'll continue her home dose of Lasix, TRC/ nebs, oxygen therapy, and close monitoring of intake and output, electrolytes. #Hypothyroidism, currently euthyroid with medications, will continue. #Hyperkalemia, resolved. #Abnormal LFT, getting better. #History of hypertension, Cozaar is on hold, needs reassessment to restart. #Will continue rest of her home medications. Diet: Regular diet DVT prophylaxis Eliquis CODE STATUS full code. Problem List: 1. Atrial fibrillation with rapid ventricular response 2. Heart failure with reduced ejection fraction Pain Ratin Pain Location: - Pain Goal: Pain 4 or less Pain Plan: prn Tomorrow's Labs & Rationales: BEP, CBC Sim,[place] 10/14/17 1716: Attending MD Review Statement Attending Statement Attending MD Statement: examined this patient, discuss w/resident/PA/GAMEROOM TECHNICIAN, agreed w/resident/PA/GAMEROOM TECHNICIAN, discussed with family, reviewed EMR data (avail), discussed with nursing Attending Assessment/Plan: Afib with RVR and chf exacerbation. pt doing better with rate control. d/w dr sheets. plan is to keep diuresing and make her npo on monday night for possible CARMEN/ cardioversion on Monday. dw pt and pts family the care plan.
--- NOTE | 2017-10-14 15:08 | PN- Cardiology ---
Subjective Subjective: Patient is slowly doing better. She remains very anxious. Respiratory status improved. Continues to have episodes of elevated heart rate. Objective Vital Signs and I&Os Vital Signs Date Time Temp Pulse Resp B/P B/P Pulse O2 O2 Flow FiO2 Mean Ox Delivery Rate 10/14 717 97.5 70 18 110/70 96 Room Air 10/13 2237 97.9 148 18 112/70 94 10/13 1645 121 Intake & Output 10/14 0810/14 0000 10/13 1600 10/13 0000 Intake Total 100 500 50 Output Total 425 276 112 9783 250 550 Balance -425 -300 -150 -750 -200 -550 Intake, IV 0 Intake, Oral 100 500 50 Number 0 Bowel Movements Output, Urine 425 789 618 4432 250 550 Patient 212 lb 216 lb Weight Current Medications: Current Medications Sig/Mekhi Start time Last Medication Dose Route Stop Time Status Admin Albuterol Sulfate 2 PUF Q4P PRN 10/11 1100 AC INH Apixaban 5 MG BID 10/11 0900 AC 10/14 PO 0944 Benzocaine/Menthol 1 GUILLERMO Q2P PRN 10/11 0915 AC 10/11 PO 1045 Buspirone HCl 30 MG DAILY 10/11 0900 AC 10/14 PO 0943 Digoxin 0.25 MG 1700 10/13 1700 AC 10/13 PO 1645 Furosemide 40 MG 7:30AM 10/13 0730 AC 10/14 IV 0612 Levothyroxine Sodium 0.05 MG DAILY AC 10/11 0700 AC 10/14 PO 0611 Lorazepam 0.5 MG ONE ONE 10/13 2300 DC 10/13 PO 10/13 2301 2300 Melatonin 5 MG ONCE ONE 10/13 2300 CAN PO 10/13 2301 Metoprolol Tartrate 150 MG BID 10/13 2100 AC 10/14 PO 0944 Results Last 48 Hrs of Labs/Mics: Laboratory Tests 10/14/17 0650: Anion Gap 10, Estimated GFR > 60, BUN/Creatinine Ratio 28.8 H, Digoxin 1.4 10/13/17 0614: Anion Gap 10, Estimated GFR > 60, BUN/Creatinine Ratio 24.4, Total Bilirubin 1.1 , Direct Bilirubin 0.2, AST 30, ALT 50, Alkaline Phosphatase 65, Total Protein 5.6 L, Albumin 3.0 L, CBC w Diff NO MAN DIFF REQ, RBC 4.81, MCV 81.3, MCH 26.8 L, MCHC 33.0, RDW 14.0, MPV 10.4, Gran % 54.4, Lymphocytes % 29.2, Monocytes % 10.9 H, Eosinophils % 4.9, Basophils % 0.6, Absolute Granulocytes 3.7, Absolute Lymphocytes 2.0, Absolute Monocytes 0.8 H, Absolute Eosinophils 0.3, Absolute Basophils 0 Assessment/Plan Assessment/Plan Assessment: 1. Acute on chronic heart failure with reduced ejection fraction. Recent outpatient echocardiogram showed ejection fraction of 3540% 2. Moderate mitral regurgitation with moderate to severe tricuspid regurgitation 3. Atrial fibrillation with elevated ventricular rate 4. History of hypothyroidism with elevated TSH of 9 5. Abnormal liver function tests Plan: * Continue IV Lasix for another 24 hours * Monitor input and output and daily weight * Check basic metabolic profile in a.m. * Continue current cardiac medication * Continue current metoprolol dose * Continue Eliquis * At the present time, depending on the course over the next 24 hours, I would likely favor keeping the patient in the hospital until Monday for CARMEN/ cardioversion at that time. For now, plan to keep the patient n.p.o. after midnight on Monday and please have an order for CARMEN placed. Continue telemetry? Yes
[2017-10-14 15:20] VITALS: BP 114/68
[2017-10-14 20:13] VITALS: BP 114/52
[2017-10-14 22:48] VITALS: BP 108/72
[2017-10-15 07:42] VITALS: BP 106/64
--- NOTE | 2017-10-15 13:00 | PN- Housestaff ---
See Addendum Subjective Follow-up For: Atrial Fibrillation with RVR Abnormal thyroid fucntion tests Hyperkalemia Transaminitis resolved Metabolic acidosis resolved Tele-Events Since Last Visit: Atrial Fibrillation, HR 80s Subjective: Patient seen and examined at bedside this morning. She denies any acute over night events except for trouble sleeping. No chest pain, tightness, palpitations or shortness of breath reported. Patient anxious for cardioversion procedure tomorrow morning. Will be NPO after midnight. Review of Systems Constitutional: Denies: see HPI. Objective Last 24 Hrs of Vital Signs/I&O Vital Signs Date Time Temp Pulse Resp B/P B/P Pulse O2 O2 Flow FiO2 Mean Ox Delivery Rate 10/15 0742 97.8 130 18 106/64 93 Room Air 10/14 2248 98.0 70 18 108/72 95 Room Air 10/14 2012 140 114/52 10/14 1706 110 10/14 1520 98.4 63 20 114/68 99 Intake & Output 10/15 1600 10/15 0800 10/15 0000 Intake Total 200 Output Total 450 650 Balance -450 -650 200 Intake, Oral 200 Output, Urine 450 650 Patient 211 lb Weight Weight Bed scale Measurement Method Physical Exam General Appearance: Alert, Oriented X3, Cooperative, No Acute Distress HEENT: Atraumatic, PERRLA, EOMI Neck: Supple, No JVD Cardiovascular: Normal S1, Normal S2, No Murmurs Lungs: Clear to Auscultation, Normal Air Movement Abdomen: Normal Bowel Sounds, Soft, No Tenderness Neurological: Normal Speech, Strength at 5/5 X4 Ext, Normal Tone, Sensation Intact Extremities: +2 edema in bilateral lower extremities Vascular: Normal Pulses, Pulses Symmetrical Current Medications: Current Medications Sig/Mekhi Start time Last Medication Dose Route Stop Time Status Admin Albuterol Sulfate 2 PUF Q4P PRN 10/11 1100 AC INH Apixaban 5 MG BID 10/11 09 AC 10/15 PO 0812 Benzocaine/Menthol 1 GUILLERMO Q2P PRN 10/11 0915 AC 10/11 PO 1045 Buspirone HCl 30 MG DAILY 10/11 09 AC 10/15 PO 0812 Digoxin 0.25 MG 1700 10/13 1700 AC 10/14 PO 1706 Furosemide 40 MG 7:30AM 10/13 0730 AC 10/15 IV 0701 Levothyroxine Sodium 0.05 MG DAILY AC 10/11 0700 AC 10/15 PO 0506 Lorazepam 0.5 MG AT BEDTIME PRN 10/14 1845 AC 10/14 PO 10/21 1844 1907 Melatonin 5 MG AT BEDTIME 10/15 0030 AC PO Metoprolol Tartrate 150 MG BID 10/13 2100 AC 10/15 PO 0812 Trazodone HCl 12.5 MG ONCE ONE 10/15 0100 DC 10/15 PO 10/15 0101 0104 Trazodone HCl 50 MG .STK-MED ONE 10/15 0056 DC PO 10/15 0057 Last 24 Hrs of Lab/Wilman Results Last 24 Hrs of Labs/Mics: Laboratory Tests 10/15/17 0610: Anion Gap 12, Estimated GFR > 60, BUN/Creatinine Ratio 27.8 H Assessment/Plan Assessment: A/P: Patient is a 72 year old female with past medical history atrial fibrillation, hypertension, anxiety, depression and hypothyroidism. Patient presented to the ED for dyspnea and palpitaions. 1. Atrial Fibrillation 2. CHF PLAN: * Patient doing better with rates controlled at 80s-90s * Seen by Dr. Mancia this morning who states to keep patient NPO for cardioversion tomorrow * Continue diuresis * CARMEN/Cardiovresion on Monday Code Status: Full Code DVT PPx: Rommel Problem List: 1. Depression 2. Hypothyroid 3. Atrial fibrillation with rapid ventricular response Pain Ratin Pain Location: None at this time Pain Goal: Remain pain free Pain Plan: As per pain pathway Tomorrow's Labs & Rationales: CBC BEP DVT/Prophylaxis: mechanical, pharmacological
[2017-10-15 15:11] VITALS: BP 112/66
--- NOTE | 2017-10-15 15:20 | PN- Cardiology ---
Subjective Subjective: Patient seems to be doing somewhat better. She remains quite anxious. Continues to have intermittent elevation of heart rate. Objective Vital Signs and I&Os Vital Signs Date Time Temp Pulse Resp B/P B/P Pulse O2 O2 Flow FiO2 Mean Ox Delivery Rate 10/15 1511 97.5 76 18 112/66 95 10/15 0742 97.8 130 18 106/64 93 Room Air 10/14 2248 98.0 70 18 108/72 95 Room Air 10/14 2012 140 114/52 10/14 1706 110 10/14 1520 98.4 63 20 114/68 99 Intake & Output 10/15 1600 10/15 0800 10/15 0000 10/14 1600 10/14 0800 10/14 0000 Intake Total 200 600 100 Output Total 450 650 800 300 250 Balance -450 -650 200 -200 -300 -150 Intake, Oral 200 600 100 Output, Urine 450 650 800 300 250 Patient 211 lb 212 lb Weight Weight Bed scale Measurement Method Current Medications: Current Medications Sig/Mekhi Start time Last Medication Dose Route Stop Time Status Admin Albuterol Sulfate 2 PUF Q4P PRN 10/11 1100 AC INH Apixaban 5 MG BID 10/11 0900 AC 10/15 PO 0812 Benzocaine/Menthol 1 GUILLERMO Q2P PRN 10/11 0915 AC 10/11 PO 1045 Buspirone HCl 30 MG DAILY 10/11 0900 AC 10/15 PO 0812 Digoxin 0.25 MG 1700 10/13 1700 AC 10/14 PO 1706 Furosemide 40 MG 7:30AM 10/13 0730 AC 10/15 IV 0701 Levothyroxine Sodium 0.05 MG DAILY AC 10/11 0700 AC 10/15 PO 0506 Lorazepam 0.5 MG AT BEDTIME PRN 10/14 1845 AC 10/14 PO 10/21 1844 1907 Melatonin 5 MG AT BEDTIME 10/15 0030 AC PO Metoprolol Tartrate 150 MG BID 10/13 2100 AC 10/15 PO 0812 Trazodone HCl 12.5 MG ONCE ONE 10/15 0100 DC 10/15 PO 10/15 0101 0104 Trazodone HCl 50 MG .STK-MED ONE 10/15 0056 DC PO 10/15 0057 Results Last 48 Hrs of Labs/Mics: Laboratory Tests 10/15/17 0610: Anion Gap 12, Estimated GFR > 60, BUN/Creatinine Ratio 27.8 H 10/14/17 0650: Anion Gap 10, Estimated GFR > 60, BUN/Creatinine Ratio 28.8 H, Digoxin 1.4 Assessment/Plan Assessment/Plan Assessment: 1. Acute on chronic heart failure with reduced ejection fraction. Recent outpatient echocardiogram showed ejection fraction of 3540% 2. Moderate mitral regurgitation with moderate to severe tricuspid regurgitation 3. Atrial fibrillation with elevated ventricular rate 4. History of hypothyroidism with elevated TSH of 9 5. Abnormal liver function tests Plan: * Continue IV Lasix for another 24 hours * Monitor input and output and daily weight * Check basic metabolic profile in a.m. * Continue current cardiac medication * Continue current metoprolol dose * Continue Eliquis * Keep the patient n.p.o. after midnight on Monday and please have an order for CARMEN placed. Probable CARMEN/cardioversion Monday Continue telemetry? Yes
[2017-10-15 23:26] VITALS: BP 116/64
[2017-10-16 06:08] VITALS: BP 108/62
--- NOTE | 2017-10-16 07:13 | PN- Housestaff ---
Ronny Sanford 10/16/17 0713: Subjective Follow-up For: Atrial fibrillation with rapid ventricular rate Congestive heart failure with preserved ejection fraction Abnormal thyroid function tests Hyperkalemia resolved Transaminitis resolved Metabolic acidosis resolved Complaints: no complaints Tele-Events Since Last Visit: Atrial fibrillation, rate varying between 85-120 Subjective: Patient was seen and examined this morning. She is alert awake and oriented to time place and person. No acute events noticed. Patient reports improvement of shortness of breath. However she reports that her heart races when she does minimal activity. Denied any chest pain, cough, fever, chills. Review of Systems Constitutional: Reports: see HPI. Objective Last 24 Hrs of Vital Signs/I&O Vital Signs Date Time Temp Pulse Resp B/P B/P Pulse O2 O2 Flow FiO2 Mean Ox Delivery Rate 10/16 0608 98.3 73 18 108/62 97 Room Air 10/15 2326 98.5 134 18 116/64 95 Room Air 10/15 1609 140 112/66 10/15 1511 97.5 76 18 112/66 95 Intake & Output 10/16 1600 10/16 0800 10/16 0000 Intake Total 10 Output Total 200 Balance 10 -200 Intake, Oral 10 Output, Urine 200 Patient 95.254 kg Weight Physical Exam General Appearance: Alert, Oriented X3, Cooperative, No Acute Distress Other Physical Findings: HEENT Atraumatic, PERRLA, EOMI, Mucous Membr. moist/pink Neck Supple, No JVD, No thryomegaly Lymphatic Axillary nl, Cervical nl Cardiovascular Normal S1, Normal S2, No Murmurs, irregularly irregular Lungs wheezes, bilateral normal Air Movement Abdomen Normal Bowel Sounds, Soft, No Tenderness, No Hepatospenomegaly Neurological Normal Speech, Strength at 5/5 X4 Ext, Normal Tone, Sensation Intact, Cranial Nerves 3-12 NL, Reflexes 2+ Extremities No Cyanosis, Normal Pulses, pedal edema 1+ Vascular Normal Pulses, Pulses Symmetrical Current Medications: Current Medications Sig/Mekhi Start time Last Medication Dose Route Stop Time Status Admin Albuterol Sulfate 2 PUF Q4P PRN 10/11 1100 AC INH Apixaban 5 MG BID 10/11 09 AC 10/16 PO 0807 Benzocaine/Menthol 1 GUILLERMO Q2P PRN 10/11 0915 AC 10/11 PO 1045 Buspirone HCl 30 MG DAILY 10/11 899 AC 10/16 PO 0807 Digoxin 0.25 MG 1700 10/13 1700 AC 10/15 PO 1609 Furosemide 40 MG 7:30AM 10/13 0730 AC 10/16 IV 0806 Levothyroxine Sodium 0.05 MG DAILY AC 10/11 0700 AC 10/16 PO 0608 Lorazepam 0.5 MG AT BEDTIME PRN 10/14 1845 AC 10/15 PO 10/21 [id number] Melatonin 5 MG AT BEDTIME 10/15 0030 AC 10/15 PO 213 Metoprolol Tartrate 150 MG BID 10/13 2100 AC 10/16 PO 0807 Last 24 Hrs of Lab/Wilman Results Last 24 Hrs of Labs/Mics: Laboratory Tests 10/16/17 0615: Anion Gap 11, Estimated GFR > 60, BUN/Creatinine Ratio 27.8 H, CBC w Diff NO MAN DIFF REQ, RBC 5.51 H, MCV 82.0, MCH 26.0 L, MCHC 31.7 L, RDW 14.3, MPV 10.5 H, Gran % 53.7, Lymphocytes % 28.2, Monocytes % 12.7 H, Eosinophils % 4.5 , Basophils % 0.9, Absolute Granulocytes 4.1, Absolute Lymphocytes 2.1, Absolute Monocytes 1.0 H, Absolute Eosinophils 0.3, Absolute Basophils 0.1 Assessment/Plan Assessment: Ms Ayala is a 72-year-old woman with a past history of paroxysmal atrial fibrillation on apixaban, 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 At the time of admission- temperatures 97.6, pulse rate 103, respiration 24, blood pressure 132/99, 98% on room air. Pertinent lab findings- WBC 10.2, hemoglobin 13.0, MCH 26.4, platelet count 311. Sodium 144, potassium 5.5 (slightly elevated likely), chloride 109, bicarbonate 18 (acedemic) Anion gap 15, BUN 27, creatinine 1.0. Glucose 162. Total bilirubin 1.4, AST 70, ALT 72 ProBNP 51862 TSH 9.070 Last echocardiogram: 13 January 2015 Mild left ventricular dilatation. Normal left ventricular ejection fraction visually estimated at > 55%. Mild left atrial dilatation. Mild mitral regurgitation. Mild aortic regurgitation. Mild tricuspid regurgitation. Trace pulmonic regurgitation. A. fib with rapid ventricular rate Patient presented with acute dyspnea with minimal exertion associated with palpitations and shortness of breath. EKG showed atrial fibrillation, irregularly irregular rhythm with rapid ventricular rate up to 130. Troponin was negative. She denied any chest pain. * Admitted to telemetry for A. fib management * Continuous security monitor * Serial troponin and EKG neg * Started Cardizem drip at 5 mL/h, goal heart rate 90-100. Cardizem drip was stopped on 10/12/2017 * Started metoprolol 150 mg twice daily * Started on digoxin with loading dose 0.5 IV, 0.25 IV x 2 more doses 6 hours apart * Continue digoxin oral 0.25mg daily * Continue home dose apixaban 5 mg twice daily * Echocardiogram showed ejection fraction of 3540%. * Follow-up cardiology recommendations * cardioversion today awaiting. Acute on chronic heart failure with reduced ejection fraction Patient presented with worsening dyspnea at rest of unclear etiology. Etiology in this case is likely acute decompensated heart failure with elevated proBNP. However her chest x-ray does not show any signs of overt heart failure. Given her lung exam there might be a possibility of underlying pulmonary disease. CAT scan chest showed cardiomegaly with pulmonary venous congestion and bilateral pleural effusion. * Total respiratory care * Provide supplemental oxygen to maintain saturation above 92 * She takes Lasix 40 mg daily at home. * Will continue 40 mg IV Lasix daily * Monitor ins and outs * Monitor daily weights * Follow-up echocardiogram ef 35% History of hypothyroidism Patient has history of hypothyroid, takes levothyroxine 50 mcg and liothyronine 25 mcg daily. She was found to have elevated TSH 9 at the time of admission * free T4 within normal limits. * Total T3 within normal limits * Will get records from her PCP office regarding her medication * Meanwhile will continue levothyroxine 50 mcg daily Hyperkalemia Potassium 5.5 at the time of admission. No EKG changes suggestive of hyperkalemia, she is asymptomatic. * Follow-up potassium WNL Abnormal liver function tests She was found to have bilirubin 1.4, ALT 17 AST 72. Repeat LFTs improved Metabolic acidosis She has bicarb 18 at the time of admission. Anion gap was 15. Hyperchloremia 111. follow-up metabolic profile - bicarb 22 History of hypertension She takes Cozaar at home however held the medication for now given hyperkalemia will resume at the time of discharge Depression Continue home medication buspirone 30 daily pagets disease She has not been taking ospemifene, which needs to be restarted at the time of dc Full code. DVT prophylaxis- eliqus reg diet pain pathway ordered Problem List: 1. Atrial fibrillation with rapid ventricular response Pain Ratin Pain Location: n/a Pain Goal: Remain pain free Pain Plan: tylenol Tomorrow's Labs & Rationales: n/a Elliot Sim 10/16/17 1403: Attending MD Review Statement Attending Statement Attending MD Statement: examined this patient, discuss w/resident/PA/COMMUNITY HEALTH NURSING DIRECTOR, agreed w/resident/PA/COMMUNITY HEALTH NURSING DIRECTOR, reviewed EMR data (avail), discussed with nursing, discussed with case mgmt Attending Assessment/Plan: pt underwent cardioversion with change to NSR today. will fu on telemetry tonight and possible dc tomorrow. dw pt the care plan.
[2017-10-16 08:28] LABS: ABSOLUTE BASOPHIL COUNT 0.1 /CUMM (0.0-0.2); ABSOLUTE GRANULOCYTE CT 4.1 /CUMM (1.4-6.5); WHITE BLOOD CELL COUNT 7.6 /CUMM (4.8-10.8)
[2017-10-16 09:10] LABS: ABSOLUTE EOSINOPHIL COUNT 0.3 /CUMM (0.0-0.7); ABSOLUTE LYMPH COUNT 2.1 /CUMM (1.2-3.4); BASOPHIL % 0.9 % (0.0-2.0); EOSINOPHIL % 4.5 % (0-5); GRANULOCYTE % 53.7 % (42.2-75.2); MEAN CORPUSCULAR HGB CONC 31.7 G/DL (33.0-37.0); MEAN PLATELET VOLUME 10.5 FL (7.4-10.4); PLATELET COUNT 332 /CUMM (130-400); RBC DISTRIBUTION WIDTH 14.3 % (11.5-14.5); RED BLOOD CELL CT 5.51 /CUMM (4.20-5.40)
[2017-10-16 09:17] LABS: HEMATOCRIT 45.2 % (37-47)
--- NOTE | 2017-10-16 12:23 | PN- Cardiology ---
Subjective Subjective: Feeling well. Noted to be in sinus rhythm with rate under control. Shortness of breath improved. No chest pain. No chest pain. No shortness of breath. No diaphoresis. No palpitations. No lightheadedness or dizziness. No nausea or vomiting. Objective Vital Signs and I&Os Vital Signs Date Time Temp Pulse Resp B/P B/P Pulse O2 O2 Flow FiO2 Mean Ox Delivery Rate 10/17 607 98.3 73 18 108/62 97 Room Air 10/15 2326 98.5 134 18 116/64 95 Room Air 10/15 1609 140 112/66 10/15 1511 97.5 76 18 112/66 95 Intake & Output 10/16 1600 10/16 0810/16 0000 10/15 1600 10/15 0810/15 0000 Intake Total 10 570 200 Output Total 200 600 650 Balance 10 -200 -30 -650 200 Intake, IV 10 Intake, Oral 10 560 200 Output, Urine 200 600 650 Patient 210 lb 211 lb Weight Weight Bed scale Measurement Method Physical Exam: Gen: NAD HEENT: normal Lungs: clear to auscultation, normal resp. effort Heart: S1, S2, 2/6 systolic murmur Abdomen: Soft, nontender, no masses Extremities: No clubbing, cyanosis, or edema. Neuro: Alert and oriented x 3, cranial nerves intact Current Medications: Current Medications Sig/Mekhi Start time Last Medication Dose Route Stop Time Status Admin Albuterol Sulfate 2 PUF Q4P PRN 10/11 1100 AC INH Apixaban 5 MG BID 10/11 09 AC 10/16 PO 0807 Benzocaine/Menthol 1 GUILLERMO Q2P PRN 10/11 0915 AC 10/11 PO 1045 Buspirone HCl 30 MG DAILY 10/11 09 AC 10/16 PO 0807 Digoxin 0.25 MG 1700 10/13 1700 AC 10/15 PO 1609 Furosemide 40 MG 7:30AM 10/13 0730 AC 10/16 IV 0806 Levothyroxine Sodium 0.05 MG DAILY AC 10/11 07 AC 10/16 PO 0608 Lorazepam 0.5 MG AT BEDTIME PRN 10/14 1845 AC 10/15 PO 10/21 184 2139 Melatonin 5 MG AT BEDTIME 10/15 0030 AC 10/15 PO 213 Metoprolol Tartrate 150 MG BID 10/13 2100 AC 10/16 PO 0807 Results Last 48 Hrs of Labs/Mics: Laboratory Tests 10/16/17 0615: Anion Gap 11, Estimated GFR > 60, BUN/Creatinine Ratio 27.8 H, CBC w Diff NO MAN DIFF REQ, RBC 5.51 H, MCV 82.0, MCH 26.0 L, MCHC 31.7 L, RDW 14.3, MPV 10.5 H, Gran % 53.7, Lymphocytes % 28.2, Monocytes % 12.7 H, Eosinophils % 4.5 , Basophils % 0.9, Absolute Granulocytes 4.1, Absolute Lymphocytes 2.1, Absolute Monocytes 1.0 H, Absolute Eosinophils 0.3, Absolute Basophils 0.1 10/15/17 0610: Anion Gap 12, Estimated GFR > 60, BUN/Creatinine Ratio 27.8 H Assessment/Plan Assessment/Plan Assessment: 1. Acute on chronic heart failure with reduced ejection fraction. Recent outpatient echocardiogram showed ejection fraction of 3540% 2. Moderate mitral regurgitation with moderate to severe tricuspid regurgitation 3. Atrial fibrillation with elevated ventricular rate 4. History of hypothyroidism with elevated TSH of 9 5. Abnormal liver function tests Plan: * Change Lasix to 40 mg p.o. twice daily * Monitor input and output and daily weight * Continue current cardiac medications * Continue Eliquis Continue telemetry? Yes
[2017-10-16 15:24] VITALS: BP 112/62
--- NOTE | 2017-10-16 17:08 | Event Note ---
Event Note Event Note: 72-year-old woman history of A. fib on Eliquis admitted for atrial fibrillation with rapid ventricular response, underwent cardioversion 10/16/[address] Yu at around 11 AM. * She was in normal sinus rhythm with heart rate varying between 70-80. However at around 3:30 PM patient was found to have elevated heart rate varying between 140-160. Stat EKG was done which showed questionable junctional tachycardia versus atrial flutter. * Discussed with Dr. Yu, recommended to start IV Cardizem drip. * We started her on IV Cardizem drip at 5 mL/h. * She is completely asymptomatic without chest pain, palpitations, short of breath. Around 6.30 pm * Patient continued to have elevated heart rate 160s,, increased Cardizem to 7.5 mL/hr * Closely monitor blood pressure. * Dr. Yu was updated
[2017-10-16 22:01] VITALS: BP 118/84
[2017-10-17 07:06] VITALS: BP 108/58
--- NOTE | 2017-10-17 07:26 | PN- Housestaff ---
Ronny Sanford 10/17/17 0726: Subjective Follow-up For: Atrial fibrillation with rapid ventricular rate status post cardioversion Congestive heart failure with preserved ejection fraction Abnormal thyroid function tests Hyperkalemia resolved Transaminitis resolved Metabolic acidosis resolved Complaints: no complaints Tele-Events Since Last Visit: A flutter rate varying between 120-160 Back to normal sinus rhythm rate varying between 70-75 Subjective: Patient was seen and examined this morning. She is alert awake and oriented to time place and person. No acute events noticed. Patient reports improvement of shortness of breath, palpitations. Denied any chest pain, cough, fever, chills. Overnight events patient underwent cardioversion 10/16/2017, remained in sinus rhythm for few hours. She converted to atrial flutter, rate up to 160, requiring IV Cardizem push and started on IV Cardizem drip. Review of Systems Constitutional: Reports: see HPI. Objective Last 24 Hrs of Vital Signs/I&O Vital Signs Date Time Temp Pulse Resp B/P B/P Pulse O2 O2 Flow FiO2 Mean Ox Delivery Rate 10/17 0706 97.8 68 18 108/58 96 Room Air 10/16 2201 98.1 139 20 118/84 93 Room Air 10/16 1939 150 106/62 10/16 1640 150 142/60 10/16 1524 97.4 75 20 112/62 95 Intake & Output 10/17 1600 10/17 0800 10/17 0000 Intake Total 252.5 240 Output Total 200 100 Balance -200 152.5 240 Intake, IV 32.5 Intake, Oral 220 240 Number 1 Bowel Movements Output, Urine 200 100 Patient 94.404 kg Weight Weight Bed scale Measurement Method Physical Exam General Appearance: Alert, Oriented X3, Cooperative, No Acute Distress Other Physical Findings: HEENT Atraumatic, PERRLA, EOMI, Mucous Membr. moist/pink Neck Supple, No JVD, No thryomegaly Lymphatic Axillary nl, Cervical nl Cardiovascular Normal S1, Normal S2, No Murmurs, irregularly irregular Lungs normal Air Movement Abdomen Normal Bowel Sounds, Soft, No Tenderness, No Hepatospenomegaly Current Medications: Current Medications Sig/Mekhi Start time Last Medication Dose Route Stop Time Status Admin Acetaminophen 650 MG ONCE ONE 10/17 0145 DC 10/17 PO 10/17 0146 0134 Albuterol Sulfate 2 PUF Q4P PRN 10/11 1100 AC INH Apixaban 5 MG BID 10/11 0900 AC 10/17 PO 0805 Benzocaine/Menthol 1 GUILLERMO Q2P PRN 10/11 0915 AC 10/11 PO 1045 Buspirone HCl 30 MG DAILY 10/11 0900 AC 10/17 PO 0806 Digoxin 0.25 MG 1700 10/13 1700 AC 10/16 PO 1640 Diltiazem HCl 30 MG Q8 10/17 1400 AC PO Diltiazem HCl 10 MG ONCE ONE 10/16 1930 DC 10/16 IV PUSH 10/16 193 1939 Diltiazem HCl 125 MG Q24H 10/16 1715 DC 10/16 Sodium Chloride 100 ML IV 1734 Diltiazem HCl 125 MG Q24H 10/16 1600 DC Sodium Chloride 100 ML IV Docusate Sodium 100 MG DAILY NEEDED PRN 10/16 1715 AC PO Furosemide 40 MG .STK-MED ONE 10/16 1636 DC IV 10/16 1637 Furosemide 40 MG 7:30 AM, & 4:30 PM 10/16 1630 AC 10/17 PO 0805 Furosemide 40 MG 7:30AM 10/13 0730 DC 10/16 IV 0806 Levothyroxine Sodium 0.05 MG DAILY AC 10/11 0700 AC 10/17 PO 0530 Lorazepam 0.5 MG AT BEDTIME PRN 10/14 1845 AC 10/16 PO 10/21 1844 2150 Melatonin 5 MG AT BEDTIME 10/17 2100 AC PO Melatonin 5 MG ONCE ONE 10/17 0100 DC PO 10/17 0101 Melatonin 5 MG AT BEDTIME 10/15 0030 AC 10/16 PO 2150 Metoprolol Tartrate 150 MG BID 10/13 2100 AC 10/17 PO 0806 Ondansetron HCl 4 MG ONCE ONE 10/17 0915 DC 10/17 IV 10/17 09 0915 Assessment/Plan Assessment: Ms Ayala is a 72-year-old woman with a past history of paroxysmal atrial fibrillation on apixaban, 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 At the time of admission- temperatures 97.6, pulse rate 103, respiration 24, blood pressure 132/99, 98% on room air. Pertinent lab findings- WBC 10.2, hemoglobin 13.0, MCH 26.4, platelet count 311. Sodium 144, potassium 5.5 (slightly elevated likely), chloride 109, bicarbonate 18 (acedemic) Anion gap 15, BUN 27, creatinine 1.0. Glucose 162. Total bilirubin 1.4, AST 70, ALT 72 ProBNP 68740 TSH 9.070 Last echocardiogram: 13 January 2015 Mild left ventricular dilatation. Normal left ventricular ejection fraction visually estimated at > 55%. Mild left atrial dilatation. Mild mitral regurgitation. Mild aortic regurgitation. Mild tricuspid regurgitation. Trace pulmonic regurgitation. A. fib with rapid ventricular rate Patient presented with acute dyspnea with minimal exertion associated with palpitations and shortness of breath. EKG showed atrial fibrillation, irregularly irregular rhythm with rapid ventricular rate up to 130. Troponin was negative. She denied any chest pain. * Admitted to telemetry for A. fib management * Continuous monitoring manager * Serial troponin and EKG neg * Started Cardizem drip at 5 mL/h, goal heart rate 90-100. Cardizem drip was stopped on 10/12/2017 * Started metoprolol 150 mg twice daily * Started on digoxin with loading dose 0.5 IV, 0.25 IV x 2 more doses 6 hours apart * Continue digoxin oral 0.25mg daily * Continue home dose apixaban 5 mg twice daily * Echocardiogram showed ejection fraction of 3540% Status post cardioversion Patient is status post cardioversion for atrial fibrillation with rapid ventricular rate on 10/16/2017, successful conversion to normal sinus rhythm. However on the same day she converted back to atrial flutter, rate 160, requiring IV Cardizem push and IV Cardizem drip. She is in normal sinus rhythm since morning, rate 60-70. * Stopped IV Cardizem drip * Started Cardizem 30 every 8hrs Acute on chronic heart failure with reduced ejection fraction Patient presented with worsening dyspnea at rest of unclear etiology. Etiology in this case is likely acute decompensated heart failure with elevated proBNP. However her chest x-ray does not show any signs of overt heart failure. Given her lung exam there might be a possibility of underlying pulmonary disease. CAT scan chest showed cardiomegaly with pulmonary venous congestion and bilateral pleural effusion. * Total respiratory care * Provide supplemental oxygen to maintain saturation above 92 * She takes Lasix 40 mg daily at home. * Will continue 40 mg po BD Lasix daily * Monitor ins and outs * Monitor daily weights * Follow-up echocardiogram ef 35% History of hypothyroidism Patient has history of hypothyroid, takes levothyroxine 50 mcg and liothyronine 25 mcg daily. She was found to have elevated TSH 9 at the time of admission * free T4 within normal limits. * Total T3 within normal limits * Meanwhile will continue levothyroxine 50 mcg daily Hyperkalemia Potassium 5.5 at the time of admission. No EKG changes suggestive of hyperkalemia, she is asymptomatic. * Follow-up potassium WNL Abnormal liver function tests She was found to have bilirubin 1.4, ALT 17 AST 72. Repeat LFTs improved Metabolic acidosis She has bicarb 18 at the time of admission. Anion gap was 15. Hyperchloremia 111. follow-up metabolic profile - bicarb 22 History of hypertension She takes Cozaar at home however held the medication for now given hyperkalemia will resume at the time of discharge Depression Continue home medication buspirone 30 daily pagets disease She has not been taking ospemifene, which needs to be restarted at the time of dc Full code. DVT prophylaxis- eliqus reg diet pain pathway ordered Problem List: 1. Heart failure with reduced ejection fraction 2. Atrial fibrillation with rapid ventricular response Pain Ratin Pain Location: n/a Pain Goal: Remain pain free Pain Plan: tylenol Tomorrow's Labs & Rationales: n/a Elliot Sim 10/17/17 1347: Attending MD Review Statement Attending Statement Attending MD Statement: examined this patient, discuss w/resident/PA/BUSINESS ACCOUNT MANAGER, agreed w/resident/PA/BUSINESS ACCOUNT MANAGER, reviewed EMR data (avail), discussed with nursing, discussed with case mgmt Attending Assessment/Plan: Afib with RVR- pt had cardioversion yesterday with which she converted to NSR and then later reverted back to Afib/aflutter. Pt wsa started on cardizem drip and currently pt back to NSR. plan is to swich her to po short acting cadizem for now and see how she does. d/w dr portillo and pt in am the care plan. possible dc tomorrow.
--- NOTE | 2017-10-17 12:36 | PN- Cardiology ---
Subjective Subjective: The patient underwent successful cardioversion yesterday with baptism of sinus rhythm. Overnight, she had prolonged episodes of atrial flutter, with ventricular rate in the 140s. Diltiazem drip was started, and the atrial flutter resolved, with no further episodes since prior to midnight. She notes palpitations and shortness of breath associated with the atrial flutter. No chest pain. No lightheadedness or dizziness. No diaphoresis. No nausea or vomiting. Objective Vital Signs and I&Os Vital Signs Date Time Temp Pulse Resp B/P B/P Pulse O2 O2 Flow FiO2 Mean Ox Delivery Rate 10/17 705 97.8 68 18 108/58 96 Room Air 10/16 2201 98.1 139 20 118/84 93 Room Air 10/16 1939 150 106/62 10/16 1640 150 142/60 10/16 1524 97.4 75 20 112/62 95 Intake & Output 10/17 1600 10/17 0800 10/17 0000 10/16 1600 10/16 0800 10/16 0000 Intake Total 252.5 240 400 10 Output Total 200 100 700 200 Balance -200 152.5 240 -300 10 -200 Intake, IV 32.5 100 Intake, Oral 220 240 300 10 Number 1 Bowel Movements Output, Urine 200 100 700 200 Patient 208 lb 210 lb Weight Weight Bed scale Measurement Method Physical Exam: Gen: NAD HEENT: normal Lungs: clear to auscultation, normal resp. effort Heart: S1, S2, 2/6 systolic murmur Abdomen: Soft, nontender, no masses Extremities: No clubbing, cyanosis, or edema. Neuro: Alert and oriented x 3, cranial nerves intact Current Medications: Current Medications Sig/Mekhi Start time Last Medication Dose Route Stop Time Status Admin Acetaminophen 650 MG ONCE ONE 10/17 0145 DC 10/17 PO 10/17 0146 0134 Albuterol Sulfate 2 PUF Q4P PRN 10/11 1100 AC INH Apixaban 5 MG BID 10/11 09 AC 10/17 PO 0805 Benzocaine/Menthol 1 GUILLERMO Q2P PRN 10/11 0915 AC 10/11 PO 1045 Buspirone HCl 30 MG DAILY 10/11 09 AC 10/17 PO 0806 Digoxin 0.25 MG 1700 10/13 1700 AC 10/16 PO 1640 Diltiazem HCl 30 MG Q8 10/17 1400 AC PO Diltiazem HCl 10 MG ONCE ONE 10/16 1930 DC 10/16 IV PUSH 10/16 1931 1939 Diltiazem HCl 125 MG Q24H 10/16 1715 DC 10/16 Sodium Chloride 100 ML IV 1734 Diltiazem HCl 125 MG Q24H 10/16 1600 DC Sodium Chloride 100 ML IV Docusate Sodium 100 MG DAILY NEEDED PRN 10/16 1715 AC PO Furosemide 40 MG .STK-MED ONE 10/16 1636 DC IV 10/16 1637 Furosemide 40 MG 7:30 AM, & 4:30 PM 10/16 1630 AC 10/17 PO 0805 Furosemide 40 MG 7:30AM 10/13 0730 DC 10/16 IV 0806 Levothyroxine Sodium 0.05 MG DAILY AC 10/11 0700 AC 10/17 PO 0530 Lorazepam 0.5 MG AT BEDTIME PRN 10/14 1845 AC 10/16 PO 10/21 1844 2150 Melatonin 5 MG AT BEDTIME 10/17 2100 AC PO Melatonin 5 MG ONCE ONE 10/17 0100 DC PO 10/17 0101 Melatonin 5 MG AT BEDTIME 10/15 0030 AC 10/16 PO 2150 Metoprolol Tartrate 150 MG BID 10/13 2100 AC 10/17 PO 0806 Ondansetron HCl 4 MG ONCE ONE 10/17 0915 DC 10/17 IV 10/17 0916 0915 Results Last 48 Hrs of Labs/Mics: Laboratory Tests 10/16/17 0615: Anion Gap 11, Estimated GFR > 60, BUN/Creatinine Ratio 27.8 H, CBC w Diff NO MAN DIFF REQ, RBC 5.51 H, MCV 82.0, MCH 26.0 L, MCHC 31.7 L, RDW 14.3, MPV 10.5 H, Gran % 53.7, Lymphocytes % 28.2, Monocytes % 12.7 H, Eosinophils % 4.5 , Basophils % 0.9, Absolute Granulocytes 4.1, Absolute Lymphocytes 2.1, Absolute Monocytes 1.0 H, Absolute Eosinophils 0.3, Absolute Basophils 0.1 Assessment/Plan Assessment/Plan Assessment: 1. Acute on chronic heart failure with reduced ejection fraction. Recent outpatient echocardiogram showed ejection fraction of 3540% 2. Moderate mitral regurgitation with moderate to severe tricuspid regurgitation 3. Atrial fibrillation with elevated ventricular rate 4. History of hypothyroidism with elevated TSH of 9 5. Abnormal liver function tests Plan: * Continue p.o. Lasix * Discontinue diltiazem drip, and start oral diltiazem 30 mg every 8 hours * Continue other cardiac medications * She needs to monitor on telemetry for further episodes of rapid atrial flutter * Likely ready for discharge tomorrow if stable. Continue telemetry? Yes
[2017-10-17] MEDS ORDERED: FUROSEMIDE40 M1 PO (13:56)
[2017-10-17 14:22] VITALS: BP 104/64
[2017-10-17 22:08] VITALS: BP 118/66
[2017-10-18 06:29] VITALS: BP 120/68
--- NOTE | 2017-10-18 07:27 | PN- Housestaff ---
Ronny Sanford 10/18/17726: Subjective Follow-up For: Atrial fibrillation with rapid ventricular rate status post cardioversion Congestive heart failure with preserved ejection fraction Abnormal thyroid function tests Hyperkalemia resolved Transaminitis resolved Metabolic acidosis resolved Complaints: no complaints Tele-Events Since Last Visit: normal sinus rhythm rate varying between 70-75 Subjective: Patient was seen and examined this morning. She is alert awake and oriented to time place and person. No acute events noticed. Patient reports improvement of shortness of breath, denies palpitations. Denied any chest pain, cough, fever, chills. Review of Systems Constitutional: Reports: see HPI. Objective Last 24 Hrs of Vital Signs/I&O Vital Signs Date Time Temp Pulse Resp B/P B/P Pulse O2 O2 Flow FiO2 Mean Ox Delivery Rate 10/18 06 97.9 73 20 120/68 97 Room Air 10/18 0628 67 118/68 10/17 2208 98.7 75 17 118/66 97 10/17 2127 72 118/66 10/17 1753 72 122/64 10/17 1422 97.9 69 20 104/64 96 10/17 1318 61 112/64 Intake & Output 10/18 0800 10/18 0000 10/17 1600 Intake Total 120 240 540 Output Total 350 175 725 Balance -230 65 -185 Intake, IV 40 Intake, Oral 120 240 500 Number 0 3 1 Bowel Movements Output, Urine 350 175 725 Patient 95.396 kg Weight Physical Exam General Appearance: Alert, Oriented X3, Cooperative, No Acute Distress Other Physical Findings: HEENT Atraumatic, PERRLA, EOMI, Mucous Membr. moist/pink Neck Supple, No JVD, No thryomegaly Lymphatic Axillary nl, Cervical nl Cardiovascular Normal S1, Normal S2, No Murmurs, irregularly irregular Lungs normal Air Movement Abdomen Normal Bowel Sounds, Soft, No Tenderness, No Hepatospenomegaly Current Medications: Current Medications Sig/Mekhi Start time Last Medication Dose Route Stop Time Status Admin Acetaminophen 650 MG .STK-MED ONE 10/17 1830 DC PO 10/17 1831 Acetaminophen 650 MG Q8P PRN 10/17 1315 AC 10/17 PO 1319 Albuterol Sulfate 2 PUF Q4P PRN 10/11 1100 AC INH Apixaban 5 MG BID 10/11 0900 AC 10/17 PO 2127 Benzocaine/Menthol 1 GUILLERMO Q2P PRN 10/11 0915 AC 10/11 PO 1045 Buspirone HCl 30 MG DAILY 10/11 0900 AC 10/17 PO 0806 Digoxin 0.25 MG 1700 10/13 1700 AC 10/17 PO 1753 Diltiazem HCl 30 MG Q8 10/17 1400 AC 10/18 PO 0628 Diltiazem HCl 125 MG Q24H 10/16 1715 DC 10/16 Sodium Chloride 100 ML IV 1734 Docusate Sodium 100 MG DAILY NEEDED PRN 10/16 1715 AC PO Furosemide 40 MG 7:30 AM, & 4:30 PM 10/16 1630 AC 10/17 PO 1653 Levothyroxine Sodium 0.05 MG DAILY AC 10/11 0700 AC 10/18 PO 0627 Lorazepam 0.5 MG AT BEDTIME PRN 10/14 1845 AC 10/17 PO 10/21 184 2256 Melatonin 5 MG AT BEDTIME 10/17 2100 AC PO Melatonin 5 MG .STK-MED ONE 10/17 1830 DC PO 10/17 1831 Melatonin 5 MG AT BEDTIME 10/15 0030 AC 10/17 PO 2256 Metoprolol Tartrate 150 MG BID 10/13 2100 AC 10/17 PO 2127 Ondansetron HCl 4 MG ONCE ONE 10/17 09 DC 10/17 IV 10/17 09 0915 Last 24 Hrs of Lab/Wilman Results Last 24 Hrs of Labs/Mics: Laboratory Tests 10/18/17 0617: Digoxin Pending Microbiology 10/17 2300 STOOL: Clostridium difficile Toxin A & B - COLB Assessment/Plan Assessment: Ms Ayala is a 72-year-old woman with a past history of paroxysmal atrial fibrillation on apixaban, 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 At the time of admission- temperatures 97.6, pulse rate 103, respiration 24, blood pressure 132/99, 98% on room air. Pertinent lab findings- WBC 10.2, hemoglobin 13.0, MCH 26.4, platelet count 311. Sodium 144, potassium 5.5 (slightly elevated likely), chloride 109, bicarbonate 18 (acedemic) Anion gap 15, BUN 27, creatinine 1.0. Glucose 162. Total bilirubin 1.4, AST 70, ALT 72 ProBNP 52876 TSH 9.070 Last echocardiogram: 13 January 2015 Mild left ventricular dilatation. Normal left ventricular ejection fraction visually estimated at > 55%. Mild left atrial dilatation. Mild mitral regurgitation. Mild aortic regurgitation. Mild tricuspid regurgitation. Trace pulmonic regurgitation. A. fib with rapid ventricular rate Patient presented with acute dyspnea with minimal exertion associated with palpitations and shortness of breath. EKG showed atrial fibrillation, irregularly irregular rhythm with rapid ventricular rate up to 130. Troponin was negative. She denied any chest pain. * Admitted to telemetry for A. fib management * Continuous surveillance system monitor * Serial troponin and EKG neg * Started Cardizem drip at 5 mL/h, goal heart rate 90-100. Cardizem drip was stopped on 10/12/2017 * Started metoprolol 150 mg twice daily * Started on digoxin with loading dose 0.5 IV, 0.25 IV x 2 more doses 6 hours apart * Continue digoxin oral 0.25mg daily * Continue home dose apixaban 5 mg twice daily * Echocardiogram showed ejection fraction of 3540% Status post cardioversion Patient is status post cardioversion for atrial fibrillation with rapid ventricular rate on 10/16/2017, successful conversion to normal sinus rhythm. However on the same day she converted back to atrial flutter, rate 160, requiring IV Cardizem push and IV Cardizem drip. She remained in normal sinus rhythm after that episode. * Stopped IV Cardizem drip * Started Cardizem 30 every 8hrs. Acute on chronic heart failure with reduced ejection fraction Patient presented with worsening dyspnea at rest of unclear etiology. Etiology in this case is likely acute decompensated heart failure with elevated proBNP. However her chest x-ray does not show any signs of overt heart failure. Given her lung exam there might be a possibility of underlying pulmonary disease. CAT scan chest showed cardiomegaly with pulmonary venous congestion and bilateral pleural effusion. * Total respiratory care * Provide supplemental oxygen to maintain saturation above 92 * She takes Lasix 40 mg daily at home. * Will continue 40 mg po BD Lasix daily * Monitor ins and outs * Monitor daily weights * Follow-up echocardiogram ef 35% History of hypothyroidism Patient has history of hypothyroid, takes levothyroxine 50 mcg and liothyronine 25 mcg daily. She was found to have elevated TSH 9 at the time of admission * free T4 within normal limits. * Total T3 within normal limits * Meanwhile will continue levothyroxine 50 mcg daily Hyperkalemia Potassium 5.5 at the time of admission. No EKG changes suggestive of hyperkalemia, she is asymptomatic. * Follow-up potassium WNL Abnormal liver function tests She was found to have bilirubin 1.4, ALT 17 AST 72. Repeat LFTs improved Metabolic acidosis She has bicarb 18 at the time of admission. Anion gap was 15. Hyperchloremia 111. follow-up metabolic profile - bicarb 22 History of hypertension She takes Cozaar at home however held the medication for now given hyperkalemia will resume at the time of discharge Depression Continue home medication buspirone 30 daily pagets disease She has not been taking ospemifene, which needs to be restarted at the time of dc Full code. DVT prophylaxis- eliqus reg diet pain pathway ordered Problem List: 1. Heart failure with reduced ejection fraction 2. Atrial fibrillation with rapid ventricular response Pain Ratin Pain Location: n/a Pain Goal: Remain pain free Pain Plan: n/a Tomorrow's Labs & Rationales: none Elliot Sim 10/18/17 1225: Attending MD Review Statement Attending Statement Attending MD Statement: examined this patient, discuss w/resident/PA/RENAL DIETITIAN, agreed w/resident/PA/RENAL DIETITIAN, reviewed EMR data (avail), discussed with nursing, discussed with case mgmt Attending Assessment/Plan: AFib with rvr- s/p cardioversion. now in NSR. will d/w cardio the dc meds as bp and HR on the lower side. d/w pt the care plan. possible dc today if ok with cardiology this afternoon.
[2017-10-18 08:51] VITALS: BP 112/60
[2017-10-18] MEDS ORDERED: DIGOXIN250 MCG PO ×2 (12:15→16:08)
--- NOTE | 2017-10-18 13:10 | PN- Cardiology ---
Subjective Subjective: Stable post cardioversion. intermittent dizziness noted. Remains in sinus rhythm Objective Vital Signs and I&Os Vital Signs Date Time Temp Pulse Resp B/P B/P Pulse O2 O2 Flow FiO2 Mean Ox Delivery Rate 10/18 0851 97.5 60 20 112/60 94 Room Air 10/18 0629 97.9 73 20 120/68 97 Room Air 10/18 0628 67 118/68 10/17 2208 98.7 75 17 118/66 97 10/17 2127 72 118/66 10/17 1753 72 122/64 10/17 1422 97.9 69 20 104/64 96 10/17 1318 61 112/64 Intake & Output 10/18 1600 10/18 0800 10/18 0000 10/17 1600 10/17 0800 10/17 0000 Intake Total 120 240 540 252.5 240 Output Total 350 175 725 100 Balance -230 65 -185 152.5 240 Intake, IV 40 32.5 Intake, Oral 120 240 500 220 240 Number 0 3 1 Bowel Movements Output, Urine 350 175 725 100 Patient 210 lb 208 lb Weight Weight Bed scale Measurement Method Current Medications: Current Medications Sig/Mekhi Start time Last Medication Dose Route Stop Time Status Admin Acetaminophen 650 MG .STK-MED ONE 10/17 1830 DC PO 10/17 1831 Acetaminophen 650 MG Q8P PRN 10/17 1315 AC 10/17 PO 1319 Albuterol Sulfate 2 PUF Q4P PRN 10/11 1100 AC INH Apixaban 5 MG BID 10/11 09 AC 10/18 PO 0807 Benzocaine/Menthol 1 GUILLERMO Q2P PRN 10/11 0915 AC 10/11 PO 1045 Buspirone HCl 30 MG DAILY 10/11 0900 AC 10/18 PO 0806 Digoxin 0.25 MG 1700 10/13 1700 AC 10/17 PO 1753 Diltiazem HCl 30 MG Q8 10/17 1400 AC 10/18 PO 0628 Docusate Sodium 100 MG DAILY NEEDED PRN 10/16 1715 AC PO Furosemide 40 MG 7:30 AM, & 4:30 PM 10/16 1630 AC 10/18 PO 0806 Levothyroxine Sodium 0.05 MG DAILY AC 10/11 0700 AC 10/18 PO 0627 Lorazepam 0.5 MG AT BEDTIME PRN 10/14 1845 AC 10/17 PO 10/21 1844 2256 Melatonin 5 MG AT BEDTIME 10/17 2100 AC PO Melatonin 5 MG .[facility]-MED ONE 10/17 1830 DC PO 10/17 1831 Melatonin 5 MG AT BEDTIME 10/15 0030 AC 10/17 PO 2256 Metoprolol Tartrate 150 MG BID 10/13 2100 AC 10/18 PO 0807 Results Last 48 Hrs of Labs/Mics: Laboratory Tests 10/18/17 1059: Digoxin Cancelled 10/18/17 0617: Digoxin 1.7 Assessment/Plan Assessment/Plan Assessment: 1. Acute on chronic heart failure with reduced ejection fraction. Recent outpatient echocardiogram showed ejection fraction of 3540% 2. Moderate mitral regurgitation with moderate to severe tricuspid regurgitation 3. Atrial fibrillation with elevated ventricular rate 4. History of hypothyroidism with elevated TSH of 9 5. Abnormal liver function tests Plan: * Continue p.o. Lasix * Continue current cardiac medication * Please have the patient out of bed and ambulate in the hallway today. * The patient has been in sinus rhythm for the last 24-36 hours. If she remains stable today, I believe she can be safely discharged for follow-up with Dr. Yu as an outpatient. * If there are any issues that preclude her discharge please notify me Continue telemetry? No
[2017-10-18 14:43] VITALS: BP 114/64
--- NOTE | 2017-10-18 16:35 | Event Note ---
Event Note Event Note: Patient is on lexapro at home, however not given in the hospital. She was advised to continue lexapro at the time of discharge.
== END 2017-10-18 16:50 | disposition home health service (06) | DRG 308 ==
LOC: ERH 04:31 → 1NO 05:28 → ERHI 05:28 → ENRESERV 06:58 → ENTRNSPT 07:38 → EDTRNSPTSTS 07:43 → EDTRNSPT 07:43 → 1NO 07:57 → CMPTRNSPT 08:20 → 1NO 08:41 → ENPENDDIS 10-18 13:34 → DELTRNSPT 10-18 16:28 → 1NO 10-18 16:50
PROVIDERS: Hospitalist; Internal Medicine Endocrinology, Diabetes & Metabolism; Pediatrics; Physical Medicine & Rehabilitation Pain Medicine
PROC: 5A2204Z Restoration of Cardiac Rhythm, Single (ICD-10-PCS; principal; 2017-10-16)
DX: I48.91 Unspecified atrial fibrillation (principal); I50.23 Acute on chronic systolic (congestive) heart failure; E87.2 Acidosis; Z79.01 Long term (current) use of anticoagulants; F41.9 Anxiety disorder, unspecified; F32.9 Major depressive disorder, single episode, unspecified; E03.9 Hypothyroidism, unspecified; Z91.14 Patient's other noncompliance with medication regimen; Z88.6 Allergy status to analgesic agent; Z88.5 Allergy status to narcotic agent; I11.0 Hypertensive heart disease with heart failure; I47.1 Supraventricular tachycardia; E87.5 Hyperkalemia; R74.0 Nonspecific elevation of levels of transaminase and lactic acid dehydrogenase [LDH]; R94.5 Abnormal results of liver function studies; M88.9 Osteitis deformans of unspecified bone
CPT/HCPCS: 1NSP; 36415; 36592; 71045; 82436; 93005; 93010; 93306; 96374; 96375; 99291; J1160; J1940; J2405; J3490